=== PATIENT | male | born 1965 | race Caucasian/White ===

== ENCOUNTER 2017-03-31 02:50 | Inpatient (IN) | payer BC ==
--- NOTE | 2017-03-31 02:58 | ED PDOC ---
Arrival/HPI - General Time Seen by Provider: 03/31/17 02:51 Historian: Patient, Family (Son) - History of Present Illness Narrative History of Present Illness (Text): 03/31/17 02:55 A 51 year old male, with no significant past medical history, presents to the with a complaint of 2 day duration , intermittent, right upper quadrant pain radiating toward his right back. The patient states that the pain usually occurs at night and a few hours after he eats. The patient denies fevers, chills , headache, dizziness, chest pain, shortness of breath, dyspnea on exertion, cough, nausea, vomiting, diarrhea, neck pain, urinary/bowel changes, trauma/ injury or any other complaint. Time/Duration: Other (2 Days) Symptom Onset: Sudden Symptom Course: Unchanged Activities at Onset: Rest Context: Home Past Medical History - Provider Review Nursing Documentation Reviewed: Yes Family/Social History - Physician Review Nursing Documentation Reviewed: Yes Family/Social History: Other (Non-contributory) Allergies/Home Meds Allergies/Adverse Reactions: Allergies Penicillins Allergy (Verified 03/31/17 02:52) RASH Home Medications: Home Meds Medication Instructions Recorded Confirmed Ranitidine HCl [Zantac] 150 mg PO DAILY 03/31/17 03/31/17 Review of Systems - Review of Systems Constitutional: absent: Fevers Respiratory: absent: SOB Cardiovascular: absent: Chest Pain Gastrointestinal: Abdominal Pain. absent: Diarrhea, Nausea, Vomiting Neurological: absent: Headache Physical Exam Vital Signs Reviewed: Yes Vital Signs Pulse Resp BP Pulse Ox 03/31/17 04:05 77 16 150/100 H 97 Appearance: Positive for: Well-Appearing, Non-Toxic Pain Distress: None Mental Status: Positive for: Alert and Oriented X 3 - Systems Exam Extroacular Muscles: Present: EOMI Mouth: Present: Moist Mucous Membranes Respiratory/Chest: Present: Clear to Auscultation, Good Air Exchange, Accessory Muscle Use. No: Respiratory Distress Cardiovascular: Present: Regular Rate and Rhythm Abdomen: Present: Tenderness (RUQ tenderness). No: Distention Upper Extremity: Present: NORMAL PULSES Lower Extremity: Present: NORMAL PULSES Neurological: Present: GCS=15, Motor Func Grossly Intact, Normal Sensory Function Skin: Present: Warm, Dry Psychiatric: Present: Alert Medical Decision Making ED Course and Treatment: 03/31/17 02:59 Impression: A 51 year old male presents to the emergency department with 2 day duration, intermittent, RUQ abdominal pain. Plan: -- EKG -- Chest X-ray -- Abdomen/Pelvis CT -- Labs -- Toradol -- Urinalysis -- Reassess and disposition Progress Notes: EKG: Ordered, reviewed, and independently interpreted the EKG. Rate : 76 BPM Rhythm : NSR Interpretation : Normal axis, Normal intervals, No acute ischemia Comparison : No previous EKG for comparison. CT Scan ABD PELVIS IV CONTRAST ONLY Signed By: MOOSE OBRIEN MD Date Signed: 03/31/17 050 IMPRESSION: 1. There is gallbladder distention which is folded on itself with gallstones gallbladder wall thickening and pericholecystic inflammatory change representing acute on chronic cholecystitis. There is gallstone in the neck of the gallbladder seen on image 59 series 2. 2. Possible trace free pelvic fluid. Seen on image 186 series 2. 03/31/17 05:15: Discussed Abdomen/Pelvis CT results with patient. - Lab Interpretations Lab Results: 03/31/17 02:50 03/31/17 02:50 Lab Results 03/31/17 03:30: Urine Color Yellow, Urine Appearance Clear, Urine pH 6.0, Ur Specific Basom 1.025, Urine Protein Negative, Urine Glucose (UA) Negative, Urine Ketones Trace H, Urine Blood Negative, Urine Nitrate Negative, Urine Bilirubin Negative, Urine Urobilinogen 0.2, Ur Leukocyte Esterase Negative 03/31/17 02:50: Sodium 139, Chloride 101, Potassium 4.6, Carbon Dioxide 27, Anion Gap 16, BUN 9, Creatinine 0.9, Est GFR ( Amer) > 60, Est GFR (Non- Af Amer) > 60, Random Glucose 147 H, Calcium 9.6, Total Bilirubin 1.5 H, AST 22 , ALT 41, Alkaline Phosphatase 67, Troponin I < 0.01, Total Protein 7.7, Albumin 4.4, Globulin 3.3, Albumin/Globulin Ratio 1.3, Lipase 52 03/31/17 02:50: pO2 44, VBG pH 7.34, VBG pCO2 50.0, VBG HCO3 27.0, VBG Total CO2 28.5 H, VBG O2 Sat (Calc) 85.3 H, VBG Base Excess 0.5, VBG Potassium 3.9, Sodium 136.0, Chloride 103.0, Glucose 145 H, Lactate 1.1, FiO2 21.0, Venous Blood Potassium 3.9 03/31/17 02:50: WBC 5.8, RBC 5.18, Hgb 15.1, Hct 44.3, MCV 85.5, MCH 29.2, MCHC 34.1, RDW 13.1, Plt Count 156, MPV 10.3, Gran % 49.9 L, Lymph % (Auto) 36.3 H, [place] % (Auto) 11.2 H, Eos % (Auto) 2.1, Baso % (Auto) 0.5, Gran # 2.91, Lymph # 2.1, [place] # 0.7 H, Eos # 0.1, Baso # 0.03 I have reviewed the lab results: Yes - RAD Interpretation Radiology Orders: 03/31/17 02:53 ABD & PELVIS IV CONTRAST ONLY [CT] Stat CHEST PORTABLE [RAD] Stat - EKG Interpretation Interpreted by ED Physician: Yes Type: 12 lead EKG - Medication Orders Current Medication Orders: Metronidazole (Flagyl) 500 mg in 100 mls @ 100 mls/hr IVPB STAT STA PRN Reason: Protocol Stop: 03/31/17 06:03 Last Admin: 03/31/17 05:17 Dose: 100 mls/hr eMAR Start Stop Document 03/31/17 05:17 LAC (Rec: 03/31/17 05:17 LAC [facility] [id number]) Intravenous Solution Start Date 03/31/17 Start Time 05:17 End Date 03/31/17 End time 06:17 Total Infusion Time 60 Levofloxacin/Dextrose (Levaquin 750mg) 750 mg in 150 mls @ 100 mls/hr IVPB STAT STA PRN Reason: Protocol Stop: 03/31/17 06:33 Last Admin: 03/31/17 05:17 Dose: 100 mls/hr eMAR Start Stop Document 03/31/17 05:17 LAC (Rec: 03/31/17 05:18 LAC [facility] [id number]) Intravenous Solution Start Date 03/31/17 Start Time 06:17 End Date 03/31/17 End time 07:17 Total Infusion Time 60 Lactated Ringer's (Lactated Ringer's) 1,000 mls @ 999 mls/hr IV .Q1H1M ANAIS Lactated Ringer's (Lactated Ringer's) 1,000 mls @ 150 mls/hr IV .Q6H40M ANAIS Discontinued Medications Ketorolac Tromethamine (Toradol) 10 mg IVP STAT STA Stop: 03/31/17 02:55 Last Admin: 03/31/17 03:03 Dose: 10 mg MAR Pain Assessment Document 03/31/17 03:03 SC (Rec: 03/31/17 03:03 SC [id number]) Pain Reassessment Is this a pain reassessment? No Sleep Is patient sleeping during reassessment? No Presence of Pain Presence of Pain Yes Pain Scale Used Pain Scale Used Numeric Description Intensity of Pain at present 7 IVP Administration Document 03/31/17 03:03 SC (Rec: 03/31/17 03:03 SC [id number]) Charges for Administration # of IVP Administrations 1 Morphine Sulfate (Morphine) 4 mg IVP STAT STA Stop: 03/31/17 05:21 - Scribe Statement The provider has reviewed the documentation as recorded by the Kostasibisaac Pitts Provider Scribe Attestation: All medical record entries made by the Scribe were at my direction and personally dictated by me. I have reviewed the chart and agree that the record accurately reflects my personal performance of the history, physical exam, medical decision making, and the department course for this patient. I have also personally directed, reviewed, and agree with the discharge instructions and disposition. Disposition/Present on Arrival - Disposition Disposition Time: 05:25
[2017-03-31 03:11] LABS: BASO # 0.03 K/mm3 (0.0-2.0); BASO % 0.5 % (0.0-3.0); EOS # 0.1 (0.0-0.7); EOS % 2.1 % (1.5-5.0); GRAN # 2.91 (1.4-6.5); GRAN % 49.9 % (50.0-68.0); HEMATOCRIT 44.3 % (42.0-52.0); LYMPH # 2.1 (1.2-3.4); LYMPH % 36.3 % (22.0-35.0); MEAN CELL VOLUME 85.5 fl (80.0-105.0); MEAN CORPUSCULAR HEMOGLOBIN 29.2 pg (25.0-35.0); MEAN CORPUSCULAR HGB CONC 34.1 g/dl (31.0-37.0); MEAN PLATELET VOLUME 10.3 fl (7.0-11.0); MONO # 0.7 (0.1-0.6); MONO % 11.2 % (1.0-6.0); RED CELL DISTRIBUTION WIDTH 13.1 % (11.5-14.5); WHITE BLOOD COUNT 5.8 10^3/ul (4.5-11.0)
[2017-03-31 03:12] LABS: VENOUS BLOOD GAS BASE EXCESS 0.5 mmol/L (0.0-2.0); VENOUS BLOOD PH 7.34 (7.32-7.43)
[2017-03-31 03:24] LABS: ALB/GLOB RATIO 1.3 (1.1-1.8); ALKALINE PHOSPHATASE 67 U/L (38-126); ALT/SGPT 41 U/L (7-56); AST/SGOT 22 U/L (17-59); BILIRUBIN,TOTAL 1.5 mg/dL (0.2-1.3); BLOOD UREA NITROGEN 9 mg/dL (7-21); CALCIUM 9.6 mg/dL (8.4-10.5); CARBON DIOXIDE 27 mmol/L (21-33); CHLORIDE 101 mmol/L (98-107); GFR AFRICAN-AMERICAN > 60; GLUCOSE,RANDOM 147 mg/dL (70-110); LIPASE 52 U/L (23-300); POTASSIUM 4.6 mmol/L (3.6-5.0); SODIUM 139 mmol/L (132-148); TOTAL PROTEIN 7.7 g/dL (5.8-8.3)
[2017-03-31] MEDS ORDERED: Iohexol 350 MG/100 ML VIAL ONE (03:30)
[2017-03-31 03:36] LABS: TROPONIN I < 0.01 ng/mL
[2017-03-31 03:52] LABS: URINE APPEARANCE CLEAR (CLEAR); URINE BILIRUBIN NEGATIVE (NEGATIVE); URINE BLOOD NEGATIVE (NEGATIVE); URINE COLOR YELLOW (YELLOW); URINE GLUCOSE (UA) NEGATIVE (NEGATIVE); URINE KETONE TRACE mg/dL (NEGATIVE); URINE LEUKOCYTE ESTERASE NEGATIVE Leu/uL (NEGATIVE); URINE PROTEIN NEGATIVE mg/dL (<30 mg/dL); URINE UROBILINOGEN 0.2 E.U./dL (<1 E.U./dL)
--- NOTE | 2017-03-31 05:01 | CT ---
EXAM: CT Abdomen and Pelvis With Intravenous Contrast CLINICAL HISTORY: 51 years old, male; Pain; Abdominal pain TECHNIQUE: Axial computed tomography images of the abdomen and pelvis with intravenous contrast. All CT scans at this facility use one or more dose reduction techniques, viz.: automated exposure control; ma/kV adjustment per patient size (including targeted exams where dose is matched to indication; i.e. head); or iterative reconstruction technique. 2 sets of reconstruction images are submitted. Axial images are submitted in soft tissue and lung windows. Coronal and sagittal reformatted images were created and reviewed. CONTRAST: 100 mL of [id number] administered intravenously. COMPARISON: No relevant prior studies available. FINDINGS: Lower thorax: Bibasilar lingular nonspecific infiltrates are present, consistent with atelectasis or pneumonia. Small hiatal hernia. Subcentimeter paraesophageal lymph nodes. Cardiomegaly. ABDOMEN: Liver: Fatty liver. Gallbladder and bile ducts: There is gallbladder distention which is folded on itself with gallstones gallbladder wall thickening and pericholecystic inflammatory change representing acute on chronic cholecystitis. There is gallstone in the neck of the gallbladder seen on image 59 series 2. Pancreas: Unremarkable. No mass. No ductal dilation. Spleen: Unremarkable. No splenomegaly. Adrenals: Unremarkable. No mass. Kidneys and ureters: Right renal hypodensity too small to characterize. No hydronephrosis. Stomach and bowel: Diverticulosis. There is stool like appearance to the distal small bowel. This may represent slow transit. No obstruction. No mucosal thickening. Appendix: The appendix is not seen. PELVIS: Bladder: Partially decompressed bladder with bladder wall thickening. Correlation with urinalysis is recommended only if clinical cystitis is suspected. Reproductive: Enlarged prostate gland. ABDOMEN and PELVIS: Intraperitoneal space: Possible trace free pelvic fluid. Seen on image 186 series 2. No free air. Bones/joints: No acute fracture. No dislocation. Soft tissues: There is a fat-containing umbilical hernia. Bilateral inguinal herniation of fat. Vasculature: Unremarkable. No abdominal aortic aneurysm. Lymph nodes: See above. IMPRESSION: 1. There is gallbladder distention which is folded on itself with gallstones gallbladder wall thickening and pericholecystic inflammatory change representing acute on chronic cholecystitis. There is gallstone in the neck of the gallbladder seen on image 59 series 2. 2. Possible trace free pelvic fluid. Seen on image 186 series 2.
[2017-03-31] MEDS ORDERED: metroNIDAZOLE IV 500 mg/100 ml 500 MG/100 ML BAG IVPB STA (05:04)
[2017-03-31] MEDS ORDERED: levoFLOXacin 750 mg in D5W 750 MG/150 ML BAG IVPB STA (05:04)
[2017-03-31] MEDS ORDERED: Morphine 4 mg/ml ISec IVP STA (05:20)
[2017-03-31] MEDS ORDERED: Lactated Ringer's 1,000 ML IV SCH ×2 (05:30)
[2017-03-31] MEDS ORDERED: Nitroglycerin 2% Ointment Foilpak UD TOP PRN (08:11)
[2017-03-31] MEDS ORDERED: Dextrose 5%/0.9% NS 1,000 ML IV SCH (08:15)
[2017-03-31] MEDS: Morphine 2 mg/ml ISec IVP PRN ×3 (08:42→22:06)
[2017-03-31 10:11] VITALS: BMI 34.0
--- NOTE | 2017-03-31 10:42 | RAD ---
HISTORY: cp COMPARISON: No prior. FINDINGS: LUNGS: No active pulmonary disease. PLEURA: No significant pleural effusion identified, no pneumothorax apparent. CARDIOVASCULAR: Normal. OSSEOUS STRUCTURES: No significant abnormalities. VISUALIZED UPPER ABDOMEN: Normal. OTHER FINDINGS: None. IMPRESSION: No active disease.
[2017-03-31] MEDS ORDERED: Sodium Chloride 0.45% 1,000 ML IV SCH (12:15)
[2017-03-31] MEDS: cefTRIAXone 1 gm 1 GM/100 ML BAG IVPB SCH (12:57)
[2017-03-31] MEDS: metroNIDAZOLE IV 500 mg/100 ml 500 MG/100 ML BAG IVPB SCH ×2 (14:15→21:18)
--- NOTE | 2017-03-31 14:57 | HP ---
HISTORY OF PRESENT ILLNESS: This 51-year-old male presented to [facility] ER complaining of abdominal pain, nausea, and vomiting and was found to have [id number] cholecystitis on abdominal CT. He is admitted for further evaluation of the above and is awaiting surgical consultation. Of note, the patient has a past history of right leg fracture and repair, fatty liver, gallstones, and was also noted to have diverticulosis on his abdominal CT. The emergency room CAT scan also noted a gallstone in the neck of the gallbladder with thickening and pericholecystic inflammatory changes, which represented [id number] cholecystitis. The patient was interviewed at his bedside in the presence of his daughter and . He has had ongoing abdominal pain and intermittent nausea and vomiting for the past several months. The patient stated that the pain usually occurs at night and after he eats. REVIEW OF SYSTEMS: CONSTITUTIONAL REVIEW: Denied fever or chills. HEAD REVIEW: Denied headache or seizure. EYE REVIEW: Denied change in visual acuity. EAR REVIEW: No hearing loss. THROAT REVIEW: No swallowing difficulty. NECK REVIEW: No stiffness. CARDIAC REVIEW: No knowledge of heart attack or chest pain or shortness of breath. PULMONARY: No knowledge of pneumonia. GASTROINTESTINAL: Chronic GERD. GENITOURINARY: No dysuria. SKIN: No rash. VASCULAR: No claudication. PSYCHOLOGIC: The patient appears anxious. NEUROLOGIC: No knowledge of stroke. SOCIAL HISTORY: The patient is a nondrinker, nonsmoker, non-IV drug misuser. MEDICATIONS: He was taking Zantac as an outpatient p.r.n. GERD. ALLERGIES: HE STATES HE HAS A SENSITIVITY TO PENICILLIN, WHICH CAUSED HIS HANDS TO HAVE SOME SWELLING. FAMILY HISTORY: Noncontributory. PAST SURGICAL HISTORY: Fractured leg repair. PHYSICAL EXAMINATION: VITAL SIGNS: Temperature 98.4, respirations 20, pulse 73, and blood pressure 153/90 with a pulse ox 99% room air. HEENT: Head: Normocephalic, atraumatic. Eyes: No icterus. Ears: Clear. Throat: Noninjected. NECK: Supple. HEART: Regular S1 and S2. LUNGS: Clear. ABDOMEN: Soft. Mild right upper quadrant discomfort to palpation. No rebound, no guarding. Audible bowel sounds present. EXTREMITIES: No clubbing, no cyanosis, no edema. SKIN: Without rash. NEUROLOGIC: Intact. PSYCHOLOGIC: Alert and oriented x3. VASCULAR: Legs are warm to touch. LABORATORY DATA: White count 5800, hemoglobin 15.1, hematocrit 44.3, and platelets 156,000. Sodium 139, K 4.6, chloride 101, bicarb 27, BUN 9, creatinine 0.9, random blood sugar 116, bilirubin 1.5, AST 22, ALT 41, alk phos 67, and lipase 52. Urinalysis unremarkable. Chest x-ray was reviewed, no active pulmonary disease, no pneumonia, no pleural effusions, no infiltrate. Abdominal pelvic CT showed [id number] cholecystitis with a gallstone in the neck of the gallbladder, no hydronephrosis, diverticulosis, no obstruction. EKG reportedly showed normal sinus rhythm. IMPRESSION AND RECOMMENDATIONS: This is a 51-year-old male with [id number] cholecystitis, now with accelerated hypertension, probably secondary to pain, history of old degenerative arthritis, and gastroesophageal reflux disease. As discussed with the family, the patient will remain n.p.o. He is receiving IV fluids for hydration. He is awaiting surgical consultation by Dr. Sukumar Krishnan. I will order blood and urine cultures for completeness sake. The patient will be given IV Rocephin and IV Flagyl while monitoring his clinical response to the Rocephin. He is ordered to receive Pepcid at bedtime p.r.n. gastroesophageal reflux disease and has an order for morphine 2 mg IV q.4 hours p.r.n. severe pain. He has an order for Zofran 4 mg IV q.6 hours p.r.n. nausea and vomiting and is on D5 0.45 saline at 100 mL/hour per IV fluid hydration. Tylenol will be given p.r.n. fever or headache. He will have repeat laboratories in the morning pending surgical evaluation. Additional testing or surgical timing will be entertained. All of the above was discussed in detail with the patient, family, and nursing at the patient's bedside. All questions were answered. Tiffanie Marrero MD MTDD
--- NOTE | 2017-03-31 15:06 | CP.PCM.CON ---
History of Present Illness - History of Present Illness History of Present Illness: GENERAL SURGERY CONSULT NOTE FOR DR. CAAL 51yo M with PMHx of GERD presented to the ED with abdominal pain. The pain began 2 days ago in the RUQ, epigastric area and radiating to his right back. The pain comes and goes and is worse after eating meat. He has associated shivering but not fevers. He vomited once a couple days ago and vomited again once today. He denies diarrhea or constipation. PMHx: GERD Surgeries: left leg fracture repair Medications: Ranitidine Allergies: penicillin Social history: denies etoh, illicit drug use or tobacco use Review of Systems - Review of Systems All systems: reviewed and no additional remarkable complaints except (as per HPI ) Past Patient History - Past Social History Smoking Status: Never Smoked - CARDIAC Hx Cardiac Disorders: No - PULMONARY Hx Respiratory Disorders: No - NEUROLOGICAL Hx Neurological Disorder: No - HEENT Hx HEENT Problems: No - RENAL Hx Chronic Kidney Disease: No - ENDOCRINE/METABOLIC Hx Endocrine Disorders: No - HEMATOLOGICAL/ONCOLOGICAL Hx Blood Disorders: No - INTEGUMENTARY Hx Dermatological Problems: No - MUSCULOSKELETAL/RHEUMATOLOGICAL Hx Musculoskeletal Disorders: No Hx Falls: Yes Hx Fractures: Yes (leg 2010) - GASTROINTESTINAL Hx Gastrointestinal Disorders: Yes Hx Gastroesophageal Reflux: Yes - GENITOURINARY/GYNECOLOGICAL Hx Genitourinary Disorders: No - PSYCHIATRIC Hx Psychophysiologic Disorder: No - SURGICAL HISTORY Hx Surgeries: Yes - ANESTHESIA Hx Anesthesia: No Meds Allergies/Adverse Reactions: Allergies Allergy/AdvReac Type Severity Reaction Status Date / Time Penicillins Allergy RASH Verified 03/31/17 02:52 - Medications Medications: Current Medications Acetaminophen (Tylenol 325mg Tab) 650 mg PO Q6H PRN PRN Reason: Fever >100.4 F Famotidine (Pepcid) 40 mg PO HS PRN PRN Reason: gerd Metronidazole (Flagyl) 500 mg in 100 mls @ 100 mls/hr IVPB Q8 ANAIS PRN Reason: Protocol Last Admin: 03/31/17 14:15 Dose: 100 mls/hr Ceftriaxone Sodium (Rocephin 1 Gram Ivpb (D5w)) 1 gm in 100 mls @ 100 mls/hr IVPB DAILY ANAIS PRN Reason: Protocol Last Admin: 03/31/17 12:57 Dose: 100 mls/hr Sodium Chloride (Sodium Chloride 0.45%) 1,000 mls @ 100 mls/hr IV .Q10H ANAIS Last Admin: 03/31/17 12:59 Dose: 100 mls/hr Morphine Sulfate (Morphine) 2 mg IVP Q4H PRN PRN Reason: Pain, severe (8-10) Last Admin: 03/31/17 08:42 Dose: 2 mg Nitroglycerin (Nitro-Bid 2% Oint) 1 ea TOP Q4H PRN PRN Reason: Other Last Admin: 03/31/17 08:42 Dose: 1 ea Ondansetron HCl (Zofran Inj) 4 mg IVP Q6H PRN PRN Reason: Nausea/Vomiting Last Admin: 03/31/17 14:42 Dose: 4 mg Physical Exam - Constitutional Appears: Well, Non-toxic, No Acute Distress - Head Exam Head Exam: ATRAUMATIC, NORMAL INSPECTION - Eye Exam Eye Exam: EOMI, Normal appearance - Respiratory Exam Respiratory Exam: NORMAL BREATHING PATTERN. absent: Respiratory Distress - Cardiovascular Exam Cardiovascular Exam: +S1, +S2 - GI/Abdominal Exam GI & Abdominal Exam: Soft, Tenderness (tender in epigastric/RUQ). absent: Distended, Firm, Guarding, Rebound, Rigid - Extremities Exam Extremities exam: Positive for: normal inspection. Negative for: calf tenderness, pedal edema - Back Exam Back exam: absent: CVA tenderness (L), CVA tenderness (R) - Neurological Exam Neurological exam: Alert, CN II-XII Intact, Oriented x3 - Psychiatric Exam Psychiatric exam: Normal Affect, Normal Mood - Skin Skin Exam: Dry, Normal Color, Warm Results - Vital Signs Recent Vital Signs: Last Vital Signs Temp 98.4 F 03/31/17 08:49 Pulse 73 03/31/17 08:49 Resp 20 03/31/17 08:49 BP 167/112 H 03/31/17 08:49 Pulse Ox 100 03/31/17 08:49 - Labs Result Diagrams: 03/31/17 02:50 03/31/17 02:50 Labs: Laboratory Results - last 24 hr 03/31/17 07:48 POC Glucose (mg/dL) 116 H Assessment & Plan - Assessment and Plan (Free Text) Assessment: 51yo M with PMHx of GERD presented with abdominal pain and was found to have cholecystitis. - Afebrile, VSS - No leukocytosis - Bilirubin mildly elevated 1.5 - LFTs WNL - CT: gallbladder distention w/ gallstones, gallbladder wall thickening & pericholecystic inflammation suggesting acute on chronic cholecystitis; fat containing umbilical hernia; bilateral fat containing inguinal hernias - Abdominal US ordered to better evaluated gallbladder and evaluate for CBD dilation - NPO, IV fluids - IV Antibiotics: Rocephin and Flagyl per medicine team - Morphine and Zofran PRN - Discussed plan with Dr. Eulogio Sullivan PGY-3
--- NOTE | 2017-03-31 15:09 | CARD ---
APPROVED REPORT EKG Measurement Heart [id number] <Conclusion> Normal sinus rhythm Normal ECG
[2017-04-01] MEDS: Morphine 2 mg/ml ISec IVP PRN ×2 (03:24→20:14)
[2017-04-01] MEDS: metroNIDAZOLE IV 500 mg/100 ml 500 MG/100 ML BAG IVPB SCH ×3 (06:31→21:21)
[2017-04-01 07:54] LABS: HEMATOCRIT 41.9 % (42.0-52.0); MEAN CELL VOLUME 84.5 fl (80.0-105.0); MEAN CORPUSCULAR HEMOGLOBIN 28.8 pg (25.0-35.0); MEAN CORPUSCULAR HGB CONC 34.1 g/dl (31.0-37.0); MEAN PLATELET VOLUME 10.7 fl (7.0-11.0); RED CELL DISTRIBUTION WIDTH 13.3 % (11.5-14.5); WHITE BLOOD COUNT 9.5 10^3/ul (4.5-11.0)
--- NOTE | 2017-04-01 08:09 | CP.PCM.PN ---
Subjective - Date & Time of Evaluation Date of Evaluation: 04/01/17 Time of Evaluation: 07:00 - Subjective Subjective: GENERAL SURGERY PROGRESS NOTE FOR DR. CAAL Patient seen and examined at bedside. He states that his abdominal pain has gone from a 7 to a 4. He has not had any more vomiting. He is ambulating to the bathroom to void. Objective - Vital Signs/Intake and Output Vital Signs (last 24 hours): Temp Pulse Resp BP Pulse Ox 99.2 F 92 H 20 136/82 93 L 04/01/17 00:05 04/01/17 00:05 04/01/17 00:05 04/01/17 00:05 04/01/17 00:05 - Medications Medications: Current Medications Acetaminophen (Tylenol 325mg Tab) 650 mg PO Q6H PRN PRN Reason: Fever >100.4 F Last Admin: 03/31/17 20:25 Dose: 650 mg Famotidine (Pepcid) 40 mg PO HS PRN PRN Reason: gerd Last Admin: 03/31/17 20:25 Dose: 40 mg Metronidazole (Flagyl) 500 mg in 100 mls @ 100 mls/hr IVPB Q8 ANAIS PRN Reason: Protocol Last Admin: 04/01/17 06:31 Dose: 100 mls/hr Ceftriaxone Sodium (Rocephin 1 Gram Ivpb (D5w)) 1 gm in 100 mls @ 100 mls/hr IVPB DAILY ANAIS PRN Reason: Protocol Last Admin: 03/31/17 12:57 Dose: 100 mls/hr Sodium Chloride (Sodium Chloride 0.45%) 1,000 mls @ 100 mls/hr IV .Q10H [facility] Last Admin: 03/31/17 12:59 Dose: 100 mls/hr Morphine Sulfate (Morphine) 2 mg IVP Q4H PRN PRN Reason: Pain, severe (8-10) Last Admin: 04/01/17 03:24 Dose: 2 mg Nitroglycerin (Nitro-Bid 2% Oint) 1 ea TOP Q4H PRN PRN Reason: Other Last Admin: 03/31/17 08:42 Dose: 1 ea Ondansetron HCl (Zofran Inj) 4 mg IVP Q6H PRN PRN Reason: Nausea/Vomiting Last Admin: 03/31/17 14:42 Dose: 4 mg - Labs Labs: 04/01/17 07:30 - Constitutional Appears: Well, Non-toxic, No Acute Distress - Head Exam Head Exam: ATRAUMATIC, NORMAL INSPECTION - Respiratory Exam Respiratory Exam: NORMAL BREATHING PATTERN. absent: Respiratory Distress - Cardiovascular Exam Cardiovascular Exam: +S1, +S2 - GI/Abdominal Exam GI & Abdominal Exam: Soft, Tenderness (tender in epigastric, mildly tender RUQ) , Hernia (small umbilical hernia). absent: Distended, Firm, Guarding, Rigid, Rebound - Neurological Exam Neurological Exam: Alert, Awake, Oriented x3 - Psychiatric Exam Psychiatric exam: Normal Affect, Normal Mood - Skin Skin Exam: Dry, Normal Color, Warm Assessment and Plan - Assessment and Plan (Free Text) Assessment: 51yo M with PMHx of GERD presented with abdominal pain and was found to have cholecystitis, need to rule out choledocholithiasis - Afebrile, VSS - No leukocytosis - Bilirubin elevated at 2.0 (increased from 1.5 yesterday) - LFTs WNL - CT: gallbladder distention w/ gallstones, gallbladder wall thickening & pericholecystic inflammation suggesting acute on chronic cholecystitis; fat containing umbilical hernia; bilateral fat containing inguinal hernias - Abdominal US ordered to better evaluate gallbladder and evaluate for CBD dilation due to elevated bilirubin - NPO, IV fluids - IV Antibiotics: Rocephin and Flagyl per medicine team - Morphine and Zofran PRN - Discussed plan with Dr. Eulogio Sullivan PGY-3
[2017-04-01 08:16] LABS: ALB/GLOB RATIO 1.3 (1.1-1.8); ALKALINE PHOSPHATASE 57 U/L (38-126); ALT/SGPT 32 U/L (7-56); AST/SGOT 21 U/L (17-59); BLOOD UREA NITROGEN 14 mg/dL (7-21); CALCIUM 8.7 mg/dL (8.4-10.5); CARBON DIOXIDE 26 mmol/L (21-33); CHLORIDE 100 mmol/L (98-107); GFR AFRICAN-AMERICAN > 60; GLUCOSE,RANDOM 157 mg/dL (70-110); SODIUM 136 mmol/L (132-148)
[2017-04-01] MEDS: cefTRIAXone 1 gm 1 GM/100 ML BAG IVPB SCH (09:26)
--- NOTE | 2017-04-01 12:12 | US ---
HISTORY: abd pain, elevated t bili COMPARISON: None. TECHNIQUE: Sonographic evaluation of the abdomen. FINDINGS: LIVER: Measures 14.85 x 13.96 cm. Increased echogenicity of the liver parenchyma. No mass. No intrahepatic bile duct dilatation. GALLBLADDER: Stones and sludge can be seen within the gallbladder. There is also edema and thickening of the wall of the gallbladder measuring 7 mm thick. There is also focal tenderness. Findings consistent with acute cholecystitis COMMON BILE DUCT: Measures 6 mm. No stones. No dilatation. PANCREAS: Not visualized RIGHT KIDNEY: Measures 11.5 x 4.8 x 5.92cm. Normal echogenicity. No calculus, mass, or hydronephrosis. LEFT KIDNEY: Measures 13.30 x 4.92 x 5.97cm. Normal echogenicity. No calculus, mass, or hydronephrosis. SPLEEN: 12.24 x 6.62 cm AORTA: No aneurysmal dilatation. IVC: Unremarkable. OTHER FINDINGS: None. IMPRESSION: Stones and sludge can be seen within the gallbladder. There is also edema and thickening of the wall of the gallbladder measuring 7 mm thick. There is also focal tenderness. Findings consistent with acute cholecystitis
[2017-04-01] MEDS: Sodium Chloride 0.9% 1,000 ML IV SCH (18:07)
[2017-04-01] MEDS: Insulin Reg-LOW-Coverage SC SCH (21:14)
--- NOTE | 2017-04-02 00:22 | PN ---
DATE: 04/01/2017 SUBJECTIVE: This 51-year-old male was examined at the bedside in the presence of his daughter and his nurse, Jessica Waddell, registered nurse. I have discussed this case in detail with the patient, family, nursing and Dr. Sukumar Krishnan from Surgery. The patient has completed abdominal CT as well as abdominal ultrasound, both are consistent with acute cholecystitis. There is no evidence of biliary tract obstruction on either CT or abdominal ultrasound and as per Dr. Sukumar Krishnan, his plans are for surgery to remove the patient's gallbladder in the a.m. The patient remains n.p.o., he is tolerating IV fluids and IV antibiotics. He states that the pain with antibiotic and parenteral morphine is improved and he is cooperating with nursing staff. PHYSICAL EXAM: VITAL SIGNS: Of note, his initial fever is now normalized and on physical exam, temperature is 97.9, respirations 18, pulse 71, blood pressure 135/90 with a pulse oximetry of 96% room air. HEENT: Head is normocephalic, atraumatic. Eyes: No icterus. Ears: Clear. Throat: Noninjected. NECK: Supple. HEART: Regular S1, S2. LUNGS: Clear. ABDOMEN: Soft. Decreased right upper quadrant discomfort. No rebound. No guarding. EXTREMITIES: No clubbing, no cyanosis, no edema. SKIN: Without rash. NEUROLOGICAL: Intact. PSYCHOLOGICAL: Alert and oriented x3. VASCULAR: Legs warm to touch. LABORATORY DATA: White count 9500, hemoglobin 14.3, hematocrit 41.9, platelets 157,000. Sodium 136, K 4.0, chloride 100, bicarb 26, BUN 14, creatinine 0.9, random blood sugar 157. Bilirubin 2.0, AST 21, ALT 32, alkaline phosphatase 57. Blood culture showed no growth at 24 hours x2. Abdominal ultrasound was reviewed. There is no liver mass, no intrahepatic bile duct dilatation, the gallbladder has stones and sludge, and there is also edema and thickening of the wall of the gallbladder consistent with acute cholecystitis, the common bile duct measures 6 mm and there are no stones or dilatation. The kidneys showed no calculus or hydronephrosis, aorta shows no aneurysmal dilatation. CT of abdomen also had changes consistent with tdoht-lz-gibfaoe cholecystitis with a gallstone noted in the neck of the gallbladder and evidence of fatty liver as well. Chest x-ray shows no active pulmonary disease, no pneumonia, no pneumothorax, no pleural effusions, no infiltrates. EKG shows normal sinus rhythm. IMPRESSION: This is a 51-year-old male with acute cholecystitis, history of peptic ulcer disease with gastroesophageal reflux disease. PLAN: As per Dr. Krishnan is to proceed with cholecystectomy in the a.m. The patient is scheduled to be n.p.o. after midnight. He continues on Rocephin 1 g IV q. 24, 0.9 saline at 100 mL per hour, nitroglycerin ointment to chest wall p.r.n. accelerated hypertension, morphine sulfate 2 mg IV q.4 hours p.r.n. severe pain, Flagyl 500 mg IV q.8 hours. All of the above was discussed with the patient's family, nursing and surgery. All questions were answered. Greater than 35 minutes was spent in the care, counseling, management, review of labs, x-rays with the patient and medical team today. Tiffanie Marrero MD
[2017-04-02] MEDS: Sodium Chloride 0.9% 1,000 ML IV SCH ×2 (05:08→13:15)
[2017-04-02] MEDS: metroNIDAZOLE IV 500 mg/100 ml 500 MG/100 ML BAG IVPB SCH ×3 (05:09→21:59)
[2017-04-02 07:20] LABS: BLOOD UREA NITROGEN 14 mg/dL (7-21); CALCIUM 8.6 mg/dL (8.4-10.5); CARBON DIOXIDE 25 mmol/L (21-33); CHLORIDE 102 mmol/L (98-107); GFR AFRICAN-AMERICAN > 60; GLUCOSE,RANDOM 129 mg/dL (70-110); POTASSIUM 4.1 mmol/L (3.6-5.0); SODIUM 138 mmol/L (132-148)
[2017-04-02] MEDS: Insulin Reg-LOW-Coverage SC SCH ×3 (08:06→16:42)
[2017-04-02] MEDS: cefTRIAXone 1 gm 1 GM/100 ML BAG IVPB SCH (10:24)
[2017-04-02] MEDS ORDERED: Bupivacaine 0.5% Inj(30mL) ONE (13:50)
[2017-04-02] MEDS ORDERED: Iohexol 240 (50 ml) ONE (13:50)
[2017-04-02] MEDS ORDERED: Propofol 10 mg/ml Inj (20 ML) ONE ×2 (14:48→15:56)
[2017-04-02] MEDS ORDERED: Midazolam 2 MG/2 ML VIAL ONE (14:49)
[2017-04-02] MEDS ORDERED: Succinylcholine 200 mg/10 ml Inj IV ONE (14:51)
[2017-04-02] MEDS ORDERED: Ciprofloxacin 400mg/200ml D5W 400 MG/200 ML BAG IVPB ONE (15:00)
[2017-04-02] MEDS ORDERED: Vancomycin 1 g Inj ONE ×2 (15:00→15:03)
[2017-04-02] MEDS ORDERED: Rocuronium 10 mg/ml (5 ml) ONE (15:32)
[2017-04-02] MEDS ORDERED: Esmolol 100 mg/10ml Inj IV ONE ×2 (15:32→16:44)
[2017-04-02] MEDS ORDERED: Glycopyrrolate 0.2 mg/ml (2ml vial) ONE ×2 (15:32→16:23)
[2017-04-02] MEDS ORDERED: Neostigmine Methylsulfate 3mg/3ml Syringe IV ONE ×2 (15:33→16:23)
[2017-04-02] MEDS ORDERED: Desflurane Inhalation Anesthetic Liq (240 ml) ONE (15:46)
[2017-04-02] MEDS ORDERED: Naloxone 0.4 mg/ml Inj (Adult) ONE (16:50)
[2017-04-02] MEDS ORDERED: HYDROmorphone 0.5 mg/0.5 ml ISec IVP PRN (17:20)
[2017-04-02] MEDS ORDERED: Oxycodone/Acetaminophen 5/325 mg Tab PO PRN (17:26)
[2017-04-02] MEDS ORDERED: Lactated Ringer's 1,000 ML IV SCH (17:30)
--- NOTE | 2017-04-02 17:31 | PCM.SURG1 ---
Surgeon's Initial Post Op Note - Surgeon's Notes Surgeon: Dr. Krishnan Clamp Remover: Belkis bartholomew PGY2, PGY1 Type of Anesthesia: General Endo Pre-Operative Diagnosis: Acute cholecystitis Operative Findings: inflammed gallbladder, unable to visualize biliary ducts Post-Operative Diagnosis: Same Operation Performed: Open partial cholecystectomy with ryan tube Specimen/Specimens Removed: fundus of gallbladder Estimated Blood Loss: EBL {In ML}: 200 Drains Used: Luis Miguel Post-Op Condition: Fair Date of Surgery/Procedure: 04/02/17 Time of Surgery/Procedure: 17:31
[2017-04-02] MEDS ORDERED: HYDROmorphone 0.5 mg/0.5 ml ISec ONE ×2 (17:44→18:02)
[2017-04-02] MEDS ORDERED: HYDROmorphone 0.5 mg/0.5 ml ISec IVP ONE (17:45)
[2017-04-02] MEDS: HYDROmorphone 1 mg/ml ISec IVP PRN (21:59)
[2017-04-03] MEDS: Sodium Chloride 0.9% 1,000 ML IV SCH ×2 (00:17→08:57)
[2017-04-03] MEDS: Insulin Reg-LOW-Coverage SC SCH ×4 (03:34→17:22)
[2017-04-03] MEDS: HYDROmorphone 1 mg/ml ISec IVP PRN ×4 (03:47→22:34)
--- NOTE | 2017-04-03 03:48 | OP ---
PROCEDURE DATE: PREOPERATIVE DIAGNOSIS: Acute and chronic cholecystitis. POSTOPERATIVE DIAGNOSIS: Acute and chronic cholecystitis. OPERATION: Exploratory laparoscopy, attempted cholecystectomy, and open partial cholecystectomy. DESCRIPTION OF PROCEDURE: In the operating room, the patient was identified by name, name of the procedure, laterality, my name, number, and the wrist band. Supraumbilical incision was made through the skin and subcutaneous tissues after the successful time out and the abdomen was entered with the Visiport after using the needle. The abdomen was entered without issues. The gallbladder was the same color as the liver. It was swollen, filled with about 100 mL of dark bile. A xiphoid 5 and two lateral 5s were placed. Having decompressed the gallbladder, I could not grab it to pick it up, when we did, it tore, first in the top and then the mid portion and then later on. There was a dilated portion where the presumptive stone was and we try to pull this up and right through. There was really no way to continue laparoscopically. Having said that once the laparoscopy was concluded, a transverse Shana incision was made from the midline laterally and the abdomen entered quickly using the Bookwalter. There was clearly no way to dissect initially by the at the end of the gallbladder. There was a little bit of bleeding, but nothing remarkable. The gallbladder was then scored on the end and a plain was attempted to sweep the gallbladder away from the liver bed, we eventually got that; however, the back wall was completely necrotic. The gallbladder was then bluntly and sharply and cautery dissected off of liver bed to the end of the gallbladder. The gallbladder was opened, all the stones were removed, it was irrigated and dried. The gallbladder was then transected across the lower portion of it after dissection was down as far as possible. Four stitches of 0 Vicryl were placed. A 15 mL balloon was inserted through one of the 5 mm ports and it was sutured in place with the balloon inflated. A Luis Miguel was placed to the other, liver bed was packed with SurgiSeal and hemostasis became good. The gallbladder remnant was bleeding from the wall twice and this was taken with a Vicryl with good results noting that the wall was very necrotic. The umbilicus was closed with stitch under direct vision. The abdomen was then closed under direct vision using a posterior layer of 0 Vicryl and anterior layer of #1 PDS. Subcutaneous tissues were closed with Vicryl followed by subcuticular stitch, Dermabond as well as the umbilicus. The patient was taken to the recovery room in good condition after sponge and needle counts were declared correct. Sukumar Krishnan MD
[2017-04-03] MEDS: metroNIDAZOLE IV 500 mg/100 ml 500 MG/100 ML BAG IVPB SCH ×3 (05:20→21:40)
[2017-04-03 06:46] LABS: BASO # 0.01 K/mm3 (0.0-2.0); BASO % 0.1 % (0.0-3.0); HEMATOCRIT 37.2 % (42.0-52.0); LYMPH # 1.3 (1.2-3.4); LYMPH % 15.7 % (22.0-35.0); MEAN CELL VOLUME 85.3 fl (80.0-105.0); MEAN CORPUSCULAR HEMOGLOBIN 28.4 pg (25.0-35.0); MEAN CORPUSCULAR HGB CONC 33.3 g/dl (31.0-37.0); MEAN PLATELET VOLUME 9.9 fl (7.0-11.0); MONO % 12.2 % (1.0-6.0); RED CELL DISTRIBUTION WIDTH 13.3 % (11.5-14.5); WHITE BLOOD COUNT 8.3 10^3/ul (4.5-11.0)
[2017-04-03 07:35] LABS: ALB/GLOB RATIO 1.1 (1.1-1.8); ALKALINE PHOSPHATASE 113 U/L (38-126); ALT/SGPT 54 U/L (7-56); AST/SGOT 69 U/L (17-59); BILIRUBIN,TOTAL 0.8 mg/dL (0.2-1.3); BLOOD UREA NITROGEN 16 mg/dL (7-21); CALCIUM 7.9 mg/dL (8.4-10.5); CARBON DIOXIDE 26 mmol/L (21-33); CHLORIDE 103 mmol/L (98-107); GFR AFRICAN-AMERICAN > 60; GLUCOSE,RANDOM 148 mg/dL (70-110); POTASSIUM 4.1 mmol/L (3.6-5.0); SODIUM 138 mmol/L (132-148)
--- NOTE | 2017-04-03 08:17 | PN ---
DATE: 04/02/2017 SUBJECTIVE: This 51-year-old male was examined at the bedside in the presence of his and nurse, Kita Funk, registered nurse. The patient remains afebrile. He is n.p.o. and scheduled for cholecystectomy with Dr. Krishnan today. PHYSICAL EXAMINATION: VITAL SIGNS: He currently has a temperature of 98.2, respirations of 20, pulse of 100, and blood pressure of 124/91 with a pulse oximetry of 97% room air. HEENT: Head is normocephalic and atraumatic. Eyes: No icterus. Ears: Clear. Throat: Noninjected. NECK: Supple. CARDIOVASCULAR: Heart is regular S1 and S2. LUNGS: Clear. ABDOMEN: Soft. No rebound and no guarding. EXTREMITIES: No edema. SKIN: Without rash. NEUROLOGICAL: Intact. PSYCHOLOGICAL: Alert. VASCULAR: Legs warm to touch. LABORATORY DATA: White count of 9500, hemoglobin of 14.3, hematocrit of 41.9, and platelets 157,000. Sodium of 138, potassium of 4.1, chloride of 102, bicarb of 25, BUN of 14, creatinine of 0.9, and random blood sugar of 120. IMPRESSION: This is a 51-year-old male with dtbul-ir-ngcrctg cholecystitis, awaiting surgical removal of gallbladder. PLAN: The plan is to remain on with blood culture showing no growth at [address] and abdominal ultrasound showing evidence of gallbladder inflammation, sludge stones and no dilatation of the intrahepatic or common bile duct. The plan is to continue Flagyl 500 mg IV q. 8 hours., regular low-dose insulin protocol a.c. meals at bedtime, Morphine 2 mg IV q. 4 hours. p.r.n. severe pain, nitroglycerin 1 inch to chest wall q. 4 hours. p.r.n. accelerated hypertension, Pepcid 40 mg p.o. at bedtime p.r.n., for gastroesophageal reflux disease, Rocephin 1 g IV q. 24 hours. and 0.9 saline at 100 mL per hour. The patient will have postoperative orders outlined by Dr. Sukumar Krishnan from surgery and pending clinical progress and operation results, he will decide discharge timing. All this was discussed in detail with the patient, family and nursing at bedside. All questions were answered. Tiffanie Marrero MD [facility] # [id number] MTDJohanna
[2017-04-03] MEDS: cefTRIAXone 1 gm 1 GM/100 ML BAG IVPB SCH (09:48)
--- NOTE | 2017-04-03 10:47 | CP.PCM.PN ---
Subjective - Date & Time of Evaluation Date of Evaluation: 04/03/17 Time of Evaluation: 06:50 - Subjective Subjective: COG-PGY1 GENERAL SURGERY PROGRESS NOTE FOR DR. CAAL Patient seen and examined at bedside. Patient complaining of post operative pain and acid feeling overnight. Patient given pain medication and head of bed elevated. Patient reports pain at right upper quadrant associated with incision site. Patient reports poor appetite, limited nausea. Patient reports flatus. Denies chest pain, shortness of breath, diarrhea, constipation, vomiting, fever , chills. Objective - Vital Signs/Intake and Output Vital Signs (last 24 hours): Temp Pulse Resp BP Pulse Ox 100.7 F H 98 H 20 118/76 95 04/03/17 08:21 04/03/17 08:00 04/03/17 08:00 04/03/17 08:00 04/03/17 08:00 Intake and Output: 04/03/17 04/03/17 06:59 18:59 Intake Total 0 Output Total 375 Balance -375 - Medications Medications: Current Medications Acetaminophen (Tylenol 325mg Tab) 650 mg PO Q6H PRN PRN Reason: Fever >100.4 F Last Admin: 04/03/17 08:21 Dose: 650 mg Famotidine (Pepcid) 40 mg PO HS PRN PRN Reason: gerd Last Admin: 04/02/17 21:59 Dose: 40 mg Heparin Sodium (Porcine) (Heparin) 5,000 units SC Q12 [facility] PRN Reason: Protocol Last Admin: 04/03/17 09:47 Dose: 5,000 units Hydromorphone HCl (Dilaudid) 1 mg IVP Q4H PRN PRN Reason: Pain, severe (8-10) Last Admin: 04/03/17 07:53 Dose: 1 mg Metronidazole (Flagyl) 500 mg in 100 mls @ 100 mls/hr IVPB Q8 [facility] PRN Reason: Protocol Last Admin: 04/03/17 05:20 Dose: 100 mls/hr Ceftriaxone Sodium (Rocephin 1 Gram Ivpb (D5w)) 1 gm in 100 mls @ 100 mls/hr IVPB DAILY [facility] PRN Reason: Protocol Last Admin: 04/03/17 09:48 Dose: 100 mls/hr Sodium Chloride (Sodium Chloride 0.9%) 1,000 mls @ 100 mls/hr IV .Q10H [facility] Last Admin: 04/03/17 08:57 Dose: 100 mls/hr Insulin Human Regular (Humulin R Low) 0 units SC ACHS [facility] PRN Reason: Protocol Last Admin: 04/03/17 09:33 Dose: Not Given Morphine Sulfate (Morphine) 2 mg IVP Q4H PRN PRN Reason: Pain, severe (8-10) Last Admin: 04/01/17 20:14 Dose: 2 mg Nitroglycerin (Nitro-Bid 2% Oint) 1 ea TOP Q4H PRN PRN Reason: Other Last Admin: 03/31/17 08:42 Dose: 1 ea Ondansetron HCl (Zofran Inj) 4 mg IVP Q6H PRN PRN Reason: Nausea/Vomiting Last Admin: 04/03/17 06:59 Dose: 4 mg Oxycodone/Acetaminophen (Percocet 5/325 Mg Tab) 2 tab PO Q4H PRN PRN Reason: Pain, moderate (4-7) Stop: 04/05/17 17:27 Pantoprazole Sodium (Protonix Inj) 40 mg IVP DAILY [facility] Last Admin: 04/03/17 09:47 Dose: 40 mg - Labs Labs: 04/03/17 06:15 04/03/17 06:15 - Constitutional Appears: No Acute Distress - Head Exam Head Exam: ATRAUMATIC, NORMAL INSPECTION, NORMOCEPHALIC - Eye Exam Eye Exam: EOMI, PERRL - ENT Exam ENT Exam: Mucous Membranes Moist - Respiratory Exam Respiratory Exam: Clear to Ausculation Bilateral, NORMAL BREATHING PATTERN. absent: Rhonchi, Wheezes - Cardiovascular Exam Cardiovascular Exam: REGULAR RHYTHM, +S1, +S2 - GI/Abdominal Exam GI & Abdominal Exam: Soft, Normal Bowel Sounds Additional comments: RUQ surgical incision with dressing c/d/i. Luis Miguel drain with serosanguinous fluid , estevez in place, both drains intact - Extremities Exam Extremities Exam: absent: Calf Tenderness, Pedal Edema - Neurological Exam Neurological Exam: Alert, Awake, Oriented x3 - Psychiatric Exam Psychiatric exam: Normal Affect, Normal Mood - Skin Skin Exam: Dry, Intact, Warm. absent: Rash Assessment and Plan - Assessment and Plan (Free Text) Assessment: 51yo M with PMHx of GERD presented with abdominal pain and was found to have cholecystitis, need to rule out choledocholithiasis. Patient is s/p lap converted to open subtotal ryan w/ drain x2 Plan: - Afebrile, VSS - No leukocytosis - Bilirubin elevated at 0.8 trending down - LFTs show mild elevation AST, ALT wnl - CT: gallbladder distention w/ gallstones, gallbladder wall thickening & pericholecystic inflammation suggesting acute on chronic cholecystitis; fat containing umbilical hernia; bilateral fat containing inguinal hernias - Abdominal US: - NPO, IV fluids - IV Antibiotics: Rocephin and Flagyl per medicine team - Morphine and Zofran PRN - Patient is s/p laproscopic converted to open subtotal cholecystectomy with placement of two drains - POD #1 - Encourage mobility, to chair, diet as tolerated, fluids - Discussed plan with Dr. Caal
[2017-04-03] MEDS ORDERED: Simethicone 80 mg Chewtab PO STA (23:10)
--- NOTE | 2017-04-03 23:50 | CP.PCM.CON ---
History of Present Illness - History of Present Illness History of Present Illness: Infectious Disease Consultation: April 03, 2017 51 yo male with initial presentation of abdominal pain, nausea, and vomiting. The patient found to have cholecystitis on the Abdominal CT. History of previous cholecystitis and believed to be an onhau-qh-dxnnpuc cholecystitis. Extensive medical history that includes gallstones, fatty liver, diverticulosis , GERDs. Taken to OR for cholecystectomy with low grade fevers 24 hours after surgery performed. PMHx: GERDs, diverticulosis, fatty liver, gallstones PSHx: Right leg fracture and repair. Allergies: PCN Social Hx: No tobacco, EtOH, or illicit drug use Active Medications Acetaminophen (Tylenol 325mg Tab) 650 mg PO Q6H PRN PRN Reason: Fever >100.4 F Last Admin: 04/03/17 08:21 Dose: 650 mg Famotidine (Pepcid) 40 mg PO HS PRN PRN Reason: gerd Last Admin: 04/02/17 21:59 Dose: 40 mg Heparin Sodium (Porcine) (Heparin) 5,000 units SC Q12 [facility] PRN Reason: Protocol Last Admin: 04/03/17 21:45 Dose: 5,000 units Hydromorphone HCl (Dilaudid) 1 mg IVP Q4H PRN PRN Reason: Pain, severe (8-10) Last Admin: 04/03/17 22:34 Dose: 1 mg Metronidazole (Flagyl) 500 mg in 100 mls @ 100 mls/hr IVPB Q8 [facility] PRN Reason: Protocol Last Admin: 04/03/17 21:40 Dose: 100 mls/hr Ceftriaxone Sodium (Rocephin 1 Gram Ivpb (D5w)) 1 gm in 100 mls @ 100 mls/hr IVPB DAILY [facility] PRN Reason: Protocol Last Admin: 04/03/17 09:48 Dose: 100 mls/hr Sodium Chloride (Sodium Chloride 0.9%) 1,000 mls @ 100 mls/hr IV .Q10H [facility] Last Admin: 04/03/17 08:57 Dose: 100 mls/hr Insulin Human Regular (Humulin R Low) 0 units SC ACHS [facility] PRN Reason: Protocol Last Admin: 04/03/17 17:22 Dose: Not Given Morphine Sulfate (Morphine) 2 mg IVP Q4H PRN PRN Reason: Pain, severe (8-10) Last Admin: 04/01/17 20:14 Dose: 2 mg Nitroglycerin (Nitro-Bid 2% Oint) 1 ea TOP Q4H PRN PRN Reason: Other Last Admin: 03/31/17 08:42 Dose: 1 ea Ondansetron HCl (Zofran Inj) 4 mg IVP Q6H PRN PRN Reason: Nausea/Vomiting Last Admin: 04/03/17 06:59 Dose: 4 mg Oxycodone/Acetaminophen (Percocet 5/325 Mg Tab) 2 tab PO Q4H PRN PRN Reason: Pain, moderate (4-7) Stop: 04/05/17 17:27 Pantoprazole Sodium (Protonix Inj) 40 mg IVP DAILY [facility] Last Admin: 04/03/17 09:47 Dose: 40 mg Family Hx: none given ROS: fevers, chills, nausea, abdominal pain No chest pain, melena, hematuria, hematemesis, hematochezia, depression, anxiety Past Patient History - Past Social History Smoking Status: Never Smoked - CARDIAC Hx Cardiac Disorders: No - PULMONARY Hx Respiratory Disorders: No - NEUROLOGICAL Hx Neurological Disorder: No - HEENT Hx HEENT Problems: No - RENAL Hx Chronic Kidney Disease: No - ENDOCRINE/METABOLIC Hx Endocrine Disorders: No - HEMATOLOGICAL/ONCOLOGICAL Hx Blood Transfusions: No Hx Blood Transfusion Reaction: No - INTEGUMENTARY Hx Dermatological Problems: No - MUSCULOSKELETAL/RHEUMATOLOGICAL Hx Musculoskeletal Disorders: No Hx Falls: Yes Hx Fractures: Yes (leg 2010) - GASTROINTESTINAL Hx Gastrointestinal Disorders: Yes Hx Gastroesophageal Reflux: Yes - GENITOURINARY/GYNECOLOGICAL Hx Genitourinary Disorders: No - PSYCHIATRIC Hx Psychophysiologic Disorder: No - SURGICAL HISTORY Hx Surgeries: Yes (2010 broken left leg/has plates & screws) - ANESTHESIA Hx Anesthesia Reactions: No Hx Malignant Hyperthermia: No Meds Allergies/Adverse Reactions: Allergies Allergy/AdvReac Type Severity Reaction Status Date / Time Penicillins Allergy RASH Verified 03/31/17 02:52 - Medications Medications: Current Medications Acetaminophen (Tylenol 325mg Tab) 650 mg PO Q6H PRN PRN Reason: Fever >100.4 F Last Admin: 04/03/17 08:21 Dose: 650 mg Famotidine (Pepcid) 40 mg PO HS PRN PRN Reason: gerd Last Admin: 04/02/17 21:59 Dose: 40 mg Heparin Sodium (Porcine) (Heparin) 5,000 units SC Q12 [facility] PRN Reason: Protocol Last Admin: 04/03/17 21:45 Dose: 5,000 units Hydromorphone HCl (Dilaudid) 1 mg IVP Q4H PRN PRN Reason: Pain, severe (8-10) Last Admin: 04/03/17 22:34 Dose: 1 mg Metronidazole (Flagyl) 500 mg in 100 mls @ 100 mls/hr IVPB Q8 [facility] PRN Reason: Protocol Last Admin: 04/03/17 21:40 Dose: 100 mls/hr Ceftriaxone Sodium (Rocephin 1 Gram Ivpb (D5w)) 1 gm in 100 mls @ 100 mls/hr IVPB DAILY [facility] PRN Reason: Protocol Last Admin: 04/03/17 09:48 Dose: 100 mls/hr Sodium Chloride (Sodium Chloride 0.9%) 1,000 mls @ 100 mls/hr IV .Q10H [facility] Last Admin: 04/03/17 08:57 Dose: 100 mls/hr Insulin Human Regular (Humulin R Low) 0 units SC ACHS [facility] PRN Reason: Protocol Last Admin: 04/03/17 17:22 Dose: Not Given Morphine Sulfate (Morphine) 2 mg IVP Q4H PRN PRN Reason: Pain, severe (8-10) Last Admin: 04/01/17 20:14 Dose: 2 mg Nitroglycerin (Nitro-Bid 2% Oint) 1 ea TOP Q4H PRN PRN Reason: Other Last Admin: 03/31/17 08:42 Dose: 1 ea Ondansetron HCl (Zofran Inj) 4 mg IVP Q6H PRN PRN Reason: Nausea/Vomiting Last Admin: 04/03/17 06:59 Dose: 4 mg Oxycodone/Acetaminophen (Percocet 5/325 Mg Tab) 2 tab PO Q4H PRN PRN Reason: Pain, moderate (4-7) Stop: 04/05/17 17:27 Pantoprazole Sodium (Protonix Inj) 40 mg IVP DAILY [facility] Last Admin: 04/03/17 09:47 Dose: 40 mg Physical Exam - Constitutional Appears: Non-toxic, No Acute Distress - Head Exam Head Exam: ATRAUMATIC, NORMOCEPHALIC - Eye Exam Eye Exam: EOMI, PERRL Pupil Exam: NORMAL ACCOMODATION, PERRL - ENT Exam ENT Exam: Mucous Membranes Moist, Normal External Ear Exam, TM's Normal Bilaterally - Neck Exam Neck exam: Positive for: Full Rom, Normal Inspection - Respiratory Exam Respiratory Exam: Clear to Auscultation Bilateral, NORMAL BREATHING PATTERN. absent: Rales, Rhonchi, Wheezes - Cardiovascular Exam Cardiovascular Exam: REGULAR RHYTHM, RRR, +S1, +S2 - GI/Abdominal Exam GI & Abdominal Exam: Normal Bowel Sounds, Soft. absent: Distended, Tenderness Additional comments: RUQ surgical incision with dressing c/d/i. Luis Miguel drain with serosanguinous fluid , estevez in place, both drains intact - Extremities Exam Extremities exam: Positive for: full ROM, normal inspection. Negative for: joint swelling, pedal edema - Neurological Exam Neurological exam: Alert, CN II-XII Intact, Oriented x3 - Psychiatric Exam Psychiatric exam: Normal Affect, Normal Mood - Skin Skin Exam: Intact, Normal Color Results - Vital Signs Recent Vital Signs: Last Vital Signs Temp 100.7 F H 04/03/17 08:21 Pulse 98 H 04/03/17 08:00 Resp 20 04/03/17 08:00 BP 118/76 04/03/17 08:00 Pulse Ox 95 04/03/17 08:00 - Labs Result Diagrams: 04/03/17 06:15 04/03/17 06:15 Labs: Laboratory Results - last 24 hr 04/03/17 04/03/17 04/03/17 06:15 06:15 07:21 WBC 8.3 RBC 4.36 Hgb 12.4 L Hct 37.2 L MCV 85.3 MCH 28.4 MCHC 33.3 RDW 13.3 Plt Count 182 MPV 9.9 Gran % 72.0 H Lymph % (Auto) 15.7 L Kendall % (Auto) 12.2 H Eos % (Auto) 0.0 L Baso % (Auto) 0.1 Gran # 6.00 Lymph # 1.3 Kendall # 1.0 H Eos # 0.0 Baso # 0.01 Sodium 138 Potassium 4.1 Chloride 103 Carbon Dioxide 26 Anion Gap 13 BUN 16 Creatinine 0.9 Est GFR ( Amer) > 60 Est GFR (Non-Af Amer) > 60 POC Glucose (mg/dL) 142 H Random Glucose 148 H Calcium 7.9 L Total Bilirubin 0.8 AST 69 H D ALT 54 Alkaline Phosphatase 113 Total Protein 6.0 Albumin 3.1 Globulin 2.9 Albumin/Globulin Ratio 1.1 04/03/17 04/03/17 04/03/17 11:38 16:22 21:24 WBC RBC Hgb Hct MCV MCH MCHC RDW Plt Count MPV Gran % Lymph % (Auto) Kendall % (Auto) Eos % (Auto) Baso % (Auto) Gran # Lymph # Kendall # Eos # Baso # Sodium Potassium Chloride Carbon Dioxide Anion Gap BUN Creatinine Est GFR ( Amer) Est GFR (Non-Af Amer) POC Glucose (mg/dL) 155 H 161 H 154 H Random Glucose Calcium Total Bilirubin AST ALT Alkaline Phosphatase Total Protein Albumin Globulin Albumin/Globulin Ratio Assessment & Plan - Assessment and Plan (Free Text) Assessment: 51 yo male with acute on chronic cholecystitis who had cholecystectomy yesterday. Low grade fevers up to 100.7 F. On Rocephin for antibiotic care. The low grade fever may by post operative which can occur up to 72 hours after the initial surgery. Monitor WBC and fever trend. Can maintain Rocephin for the time being. Butler cultures. Initial cultures done on patient have been negative. Supportive care. Fevers are most likely to resolve on their own as post operative fevers are the most likely scenario. Thank you for allowing me to participate in the care of the patient, we will follow with you.
[2017-04-04] MEDS: Insulin Reg-LOW-Coverage SC SCH ×4 (03:10→17:21)
[2017-04-04] MEDS: Sodium Chloride 0.9% 1,000 ML IV SCH ×2 (03:11→09:59)
[2017-04-04] MEDS: HYDROmorphone 1 mg/ml ISec IVP PRN ×2 (04:07→10:38)
[2017-04-04] MEDS: metroNIDAZOLE IV 500 mg/100 ml 500 MG/100 ML BAG IVPB SCH ×3 (05:21→21:34)
--- NOTE | 2017-04-04 08:06 | PN ---
DATE: 04/03/2017 SUBJECTIVE: This 51-year-old male was examined at his bedside in the presence of his nurse, Deidre, and his . The patient is status post an open procedure cholecystectomy by Dr. Sukumar Krishnan on 04/02/2017. The patient is lying in bed. He is tolerating liquids, but has declined eating solid food because of nausea. The patient denies chest pain. PHYSICAL EXAMINATION: VITAL SIGNS: Temperature earlier today was 100.7, respirations 20, pulse 98, blood pressure 118/76 with a pulse ox of 95% on room air. HEENT: Head: Normocephalic, atraumatic. Eyes: No icterus. Ears: Clear. Throat: Noninjected. NECK: Supple. HEART: Regular S1, S2. LUNGS: Clear. ABDOMEN: Soft. There is a Escobar-Aceves exiting his abdominal dressing, draining serosanguineous fluid. VASCULAR: Legs warm to touch. PSYCHOLOGIC: Alert and oriented x3. NEUROLOGIC: Grossly intact. LABORATORY DATA: White count 8300, hemoglobin 12.4, hematocrit 37.2, platelets 182,000. Sodium 138, K 4.1, chloride 103, bicarb 26, BUN 16, creatinine 0.9, random blood sugar 155. Bilirubin 0.8, AST 69, ALT 54 and alk phos 113. Blood cultures x2 showed no growth. Urine culture showed no growth. IMPRESSION: This is a 51-year-old male with [id number] cholecystitis with postoperative fever in the setting of failed laparoscopic cholecystectomy and a open cholecystectomy with perioperative hyperglycemia, anxiety and expected pain. PLAN: At present, is to continue incentive spirometry, diet as per Surgery. He is wearing antiembolism stockings and has been ordered out of bed to chair with physical therapy for ambulation safety. He continues on 0.9 saline at 100 mL/hour. He will continue on Rocephin 1 g IV q. 24 h., Flagyl 500 mg IV q. 8 h., heparin 5000 units subcu q. 12 h. until he is fully ambulatory and regular low-dose insulin protocol before meals and at bedtime. He is ordered to receive Pepcid 40 mg p.o. at bedtime p.r.n. gastroesophageal reflux disease. He has an order for Protonix 40 mg IV daily by surgery. He has morphine for severe pain, Percocet for moderate pain and I will order an ID evaluation with Dr. Glass for completeness sake. All of the above was explained in detail to the patient, and nursing at bedside. All questions were answered. Tiffanie Marrero MD MTDD
[2017-04-04] MEDS: cefTRIAXone 1 gm 1 GM/100 ML BAG IVPB SCH (09:59)
--- NOTE | 2017-04-04 10:04 | CP.PCM.PN ---
Subjective - Date & Time of Evaluation Date of Evaluation: 04/04/17 Time of Evaluation: 07:30 - Subjective Subjective: COG-PGY1 GENERAL SURGERY PROGRESS NOTE FOR DR. CAAL Patient seen and examined at bedside. No acute events overnight reported. Patient continues to express RUQ abdominal pain related to incision site. Patient reports ambulating yesterday, passing flatus. Denies chest pain, shortness of breath, fever, chills, nausea, vomiting. Objective - Vital Signs/Intake and Output Vital Signs (last 24 hours): Temp Pulse Resp BP Pulse Ox 99.3 F 88 18 111/78 93 L 04/04/17 08:00 04/04/17 08:00 04/04/17 08:00 04/04/17 08:00 04/04/17 08:00 Intake and Output: 04/04/17 04/04/17 06:59 18:59 Intake Total 240 Balance 240 - Medications Medications: Current Medications Acetaminophen (Tylenol 325mg Tab) 650 mg PO Q6H PRN PRN Reason: Fever >100.4 F Last Admin: 04/03/17 08:21 Dose: 650 mg Famotidine (Pepcid) 40 mg PO HS PRN PRN Reason: gerd Last Admin: 04/02/17 21:59 Dose: 40 mg Heparin Sodium (Porcine) (Heparin) 5,000 units SC Q12 ANAIS PRN Reason: Protocol Last Admin: 04/03/17 21:45 Dose: 5,000 units Hydromorphone HCl (Dilaudid) 1 mg IVP Q4H PRN PRN Reason: Pain, severe (8-10) Last Admin: 04/04/17 04:07 Dose: 1 mg Metronidazole (Flagyl) 500 mg in 100 mls @ 100 mls/hr IVPB Q8 ANAIS PRN Reason: Protocol Last Admin: 04/04/17 05:21 Dose: 100 mls/hr Ceftriaxone Sodium (Rocephin 1 Gram Ivpb (D5w)) 1 gm in 100 mls @ 100 mls/hr IVPB DAILY ANAIS PRN Reason: Protocol Last Admin: 04/03/17 09:48 Dose: 100 mls/hr Sodium Chloride (Sodium Chloride 0.9%) 1,000 mls @ 100 mls/hr IV .Q10H [facility] Last Admin: 04/04/17 03:11 Dose: 100 mls/hr Insulin Human Regular (Humulin R Low) 0 units SC ACHS ANAIS PRN Reason: Protocol Last Admin: 04/04/17 08:11 Dose: Not Given Nitroglycerin (Nitro-Bid 2% Oint) 1 ea TOP Q4H PRN PRN Reason: Other Last Admin: 03/31/17 08:42 Dose: 1 ea Ondansetron HCl (Zofran Inj) 4 mg IVP Q6H PRN PRN Reason: Nausea/Vomiting Last Admin: 04/03/17 06:59 Dose: 4 mg Oxycodone/Acetaminophen (Percocet 5/325 Mg Tab) 2 tab PO Q4H PRN PRN Reason: Pain, moderate (4-7) Stop: 04/05/17 17:27 Pantoprazole Sodium (Protonix Inj) 40 mg IVP DAILY [facility] Last Admin: 04/03/17 09:47 Dose: 40 mg - Labs Labs: 04/03/17 06:15 04/03/17 06:15 - Constitutional Appears: No Acute Distress - Head Exam Head Exam: ATRAUMATIC, NORMAL INSPECTION, NORMOCEPHALIC - Eye Exam Eye Exam: EOMI, PERRL - ENT Exam ENT Exam: Mucous Membranes Moist - Neck Exam Neck Exam: Full ROM - Respiratory Exam Respiratory Exam: Clear to Ausculation Bilateral, NORMAL BREATHING PATTERN - Cardiovascular Exam Cardiovascular Exam: REGULAR RHYTHM, +S1, +S2 - GI/Abdominal Exam GI & Abdominal Exam: Distended, Soft, Normal Bowel Sounds. absent: Firm, Guarding, Rigid Additional comments: RUQ surgical incision with dressing c/d/i. Luis Miguel drain with serosanguinous fluid , estevez in place, both drains intact - Extremities Exam Extremities Exam: absent: Calf Tenderness, Pedal Edema - Neurological Exam Neurological Exam: Alert, Awake, Oriented x3 - Psychiatric Exam Psychiatric exam: Normal Affect, Normal Mood - Skin Skin Exam: Dry, Intact. absent: Rash Assessment and Plan - Assessment and Plan (Free Text) Assessment: 51yo M with PMHx of GERD presented with abdominal pain and was found to have cholecystitis, need to rule out choledocholithiasis. Patient is s/p lap converted to open subtotal ryan w/ drain x2 Plan: - VSS, No leukocytosis - CT: gallbladder distention w/ gallstones, gallbladder wall thickening & pericholecystic inflammation suggesting acute on chronic cholecystitis; fat containing umbilical hernia; bilateral fat containing inguinal hernias - Abdominal US(04/01/2017): evidence of stones and sludge within gb, 7mm wall gb wall thickening, focal tenderness - IV Antibiotics: Rocephin and Flagyl per medicine team - Zofran PRN - Patient is s/p laproscopic converted to open subtotal cholecystectomy with placement of two drains - POD #2 - Encourage mobility, to chair, diet as tolerated, fluids - simethicone for gas/abd distention - Discussed plan with Dr. Caal
[2017-04-04] MEDS ORDERED: Sodium Chloride 0.9% 1,000 ML IV SCH (12:04)
[2017-04-04] MEDS ORDERED: Morphine 2 mg/ml ISec IVP PRN (12:05)
[2017-04-04] MEDS ORDERED: Simethicone 80 mg Chewtab PO PRN (12:33)
[2017-04-04] MEDS ORDERED: Alum-Mag Hydrox-Simethicone Susp (30 mL) PO ONE (12:36)
[2017-04-04] MEDS ORDERED: HYDROmorphone 0.5 mg/0.5 ml ISec IVP PRN (12:38)
--- NOTE | 2017-04-04 15:39 | PN ---
DATE: 04/04/2017 SUBJECTIVE: This 51-year-old male was examined at his bedside in the presence of his , and his case was reviewed in detail with his nurse, Cheryl, also present at the bedside. The patient was seen by Surgery earlier this morning. He has been advanced to a regular diet. He is wearing anti-embolism sequential compression device stockings and was ambulated by physical therapy earlier today. He denies fever or chills, and has been running low-grade postoperative fevers. This has been discussed with Dr. Gerardo Glass from Infectious Disease, who feels that this is consistent with normal postoperative surgical course, and he recommends that the patient continue on current antibiotics which include IV Rocephin and Flagyl. The patient denies nausea or vomiting. PHYSICAL EXAMINATION: VITAL SIGNS: Temperature 99.3, respirations 18, pulse 88, blood pressure 111/78, pulse ox 95% room air. HEENT: Head, normocephalic, atraumatic. Eyes, no icterus. Ears, clear. Throat, noninjected. NECK: Supple. HEART: Regular, S1, S2. LUNGS: Clear. ABDOMEN: Soft with a Escobar-Aceves and Carrasco drain showing small amounts of serosanguineous fluid. EXTREMITIES: Show no clubbing, no cyanosis, no edema. He is wearing his antiembolism stockings. VASCULAR: Legs warm to touch. PSYCHOLOGICAL: Alert and oriented x3. NEURO: Grossly intact. LABORATORY DATA: White count 8300, hemoglobin 12.4, hematocrit 37.2, platelets 182,000. Sodium 138, K 4.1, chloride 103, bicarb 26, BUN 16, creatinine 0.9, random blood sugar 100. Bilirubin 0.8, AST 69, ALT is 54, alk phos 113. Blood and urine cultures negative to date. IMPRESSION: A 51-year-old male status post [id number] cholecystitis and open cholecystectomy with comorbidities of postoperative fever and deconditioning. PLAN: As discussed with the patient, , and nursing as well as Surgery and Infectious Disease. He is to continue Morphine 2 mg IV q.4 hours p.r.n. severe pain, Flagyl 500 mg IV q.8, Rocephin 1 g IV q.24, heparin 5000 units subcutaneously q.12, regular low-dose insulin protocol a.c. meals and at bedtime, Pepcid 40 mg p.o. at bedtime p.r.n. gastroesophageal reflux disease, Protonix 40 mg IV daily, IV fluids at 40 mL per hour since the patient is drinking adequately, and the patient has been instructed on the use of incentive spirometry and need for ambulation safety. As discussed with the patient and , once the patient is cleared by Infectious Disease and Surgery, he will be discharged to home for outpatient followup. Greater than 35 minutes was spent in the care management, review of orders, and outlining of additional treatment plan for the patient today. All questions were answered. Tiffanie Marrero MD MTDD
--- NOTE | 2017-04-04 16:43 | CP.PCM.PN ---
Subjective - Date & Time of Evaluation Date of Evaluation: 04/04/17 Time of Evaluation: 15:15 - Subjective Subjective: Infectious Disease Follow Up: April 04, 2017 51 yo male with initial presentation of abdominal pain, nausea, and vomiting. The patient found to have cholecystitis on the Abdominal CT. History of previous cholecystitis and believed to be an [id number] cholecystitis. Extensive medical history that includes gallstones, fatty liver, diverticulosis , GERDs. Taken to OR for cholecystectomy with low grade fevers 24 hours after surgery performed. Afebrile so far today. No major complaints. Currently on Rocephin and Flagyl. Objective - Vital Signs/Intake and Output Vital Signs (last 24 hours): Temp Pulse Resp BP Pulse Ox 99.3 F 88 18 111/78 93 L 04/04/17 08:00 04/04/17 08:00 04/04/17 08:00 04/04/17 08:00 04/04/17 08:00 Intake and Output: 04/04/17 04/04/17 06:59 18:59 Intake Total 240 240 Output Total 300 Balance 240 -60 - Medications Medications: Current Medications Acetaminophen (Tylenol 325mg Tab) 650 mg PO Q6H PRN PRN Reason: Fever >100.4 F Last Admin: 04/03/17 08:21 Dose: 650 mg Famotidine (Pepcid) 40 mg PO HS PRN PRN Reason: gerd Last Admin: 04/02/17 21:59 Dose: 40 mg Heparin Sodium (Porcine) (Heparin) 5,000 units SC Q12 ANAIS PRN Reason: Protocol Last Admin: 04/04/17 10:01 Dose: 5,000 units Hydromorphone HCl (Dilaudid) 0.5 mg IVP Q4H PRN PRN Reason: Pain, severe (8-10) Metronidazole (Flagyl) 500 mg in 100 mls @ 100 mls/hr IVPB Q8 ANAIS PRN Reason: Protocol Last Admin: 04/04/17 13:06 Dose: 100 mls/hr Ceftriaxone Sodium (Rocephin 1 Gram Ivpb (D5w)) 1 gm in 100 mls @ 100 mls/hr IVPB DAILY ANAIS PRN Reason: Protocol Last Admin: 04/04/17 09:59 Dose: 100 mls/hr Sodium Chloride (Sodium Chloride 0.9%) 1,000 mls @ 40 mls/hr IV .Q24H [facility] Insulin Human Regular (Humulin R Low) 0 units SC ACHS ANAIS PRN Reason: Protocol Last Admin: 04/04/17 11:43 Dose: Not Given Ketorolac Tromethamine (Toradol) 15 mg IVP Q4 PRN PRN Reason: Pain, moderate (4-7) Nitroglycerin (Nitro-Bid 2% Oint) 1 ea TOP Q4H PRN PRN Reason: Other Last Admin: 03/31/17 08:42 Dose: 1 ea Ondansetron HCl (Zofran Inj) 4 mg IVP Q6H PRN PRN Reason: Nausea/Vomiting Last Admin: 04/03/17 06:59 Dose: 4 mg Oxycodone/Acetaminophen (Percocet 5/325 Mg Tab) 2 tab PO Q4H PRN PRN Reason: Pain, moderate (4-7) Stop: 04/05/17 17:27 Pantoprazole Sodium (Protonix Inj) 40 mg IVP DAILY [facility] Last Admin: 04/04/17 10:00 Dose: 40 mg Simethicone (Mylicon Chew Tab) 80 mg PO PCHS PRN PRN Reason: GI distress - Labs Labs: 04/03/17 06:15 04/03/17 06:15 - Constitutional Appears: Non-toxic, No Acute Distress - Head Exam Head Exam: ATRAUMATIC, NORMOCEPHALIC - Eye Exam Eye Exam: EOMI, PERRL Pupil Exam: NORMAL ACCOMODATION, PERRL - ENT Exam ENT Exam: Mucous Membranes Moist, Normal External Ear Exam, TM's Normal Bilaterally - Neck Exam Neck Exam: Full ROM, Normal Inspection - Respiratory Exam Respiratory Exam: Clear to Ausculation Bilateral, NORMAL BREATHING PATTERN. absent: Rales, Rhonchi, Wheezes - Cardiovascular Exam Cardiovascular Exam: REGULAR RHYTHM, RRR, +S1, +S2 - GI/Abdominal Exam GI & Abdominal Exam: Soft, Normal Bowel Sounds. absent: Distended, Tenderness Additional comments: RUQ surgical incision with dressing c/d/i. Luis Miguel drain with serosanguinous fluid , estevez in place, both drains intact - Extremities Exam Extremities Exam: Full ROM, Normal Inspection - Neurological Exam Neurological Exam: Alert, Awake, CN II-XII Intact, Oriented x3 - Psychiatric Exam Psychiatric exam: Normal Affect, Normal Mood - Skin Skin Exam: Intact, Normal Color Assessment and Plan - Assessment and Plan (Free Text) Assessment: 51 yo male with acute on chronic cholecystitis who had cholecystectomy yesterday. Low grade fevers up to 100.7 F. On Rocephin and Flagyl for antibiotic care. The low grade fever may be post operative which can occur up to 72 hours after the initial surgery. Monitor WBC and fever trend. Can maintain Rocephin for the time being. Butler cultures. Initial cultures done on patient have been negative. Supportive care. Fevers are most likely to resolve on their own as post operative fevers are the most likely scenario. Afebrile so far today. Still no leukocytosis. Thank you for allowing me to participate in the care of the patient, we will follow with you.
[2017-04-05] MEDS: Insulin Reg-LOW-Coverage SC SCH ×5 (02:27→21:57)
[2017-04-05] MEDS: metroNIDAZOLE IV 500 mg/100 ml 500 MG/100 ML BAG IVPB SCH ×3 (05:52→21:03)
[2017-04-05 09:17] VITALS: O2SAT 95
[2017-04-05] MEDS ORDERED: Oxycodone/Acetaminophen 5/325 mg Tab PO PRN (09:37)
--- NOTE | 2017-04-05 09:40 | CP.PCM.PN ---
Subjective - Date & Time of Evaluation Date of Evaluation: 04/05/17 Time of Evaluation: 06:45 Objective - Vital Signs/Intake and Output Vital Signs (last 24 hours): Temp Pulse Resp BP Pulse Ox 99.0 F 86 18 131/94 H 95 04/05/17 08:00 04/05/17 08:00 04/05/17 08:00 04/05/17 08:00 04/05/17 08:00 Intake and Output: 04/05/17 04/05/17 06:59 18:59 Intake Total 1560 Output Total 285 Balance 1275 - Medications Medications: Current Medications Acetaminophen (Tylenol 325mg Tab) 650 mg PO Q6H PRN PRN Reason: Fever >100.4 F Last Admin: 04/03/17 08:21 Dose: 650 mg Docusate Sodium (Colace) 100 mg PO TID [facility] Last Admin: 04/04/17 18:08 Dose: 100 mg Famotidine (Pepcid) 40 mg PO HS PRN PRN Reason: gerd Last Admin: 04/02/17 21:59 Dose: 40 mg Heparin Sodium (Porcine) (Heparin) 5,000 units SC Q12 ANAIS PRN Reason: Protocol Last Admin: 04/04/17 21:32 Dose: 5,000 units Hydromorphone HCl (Dilaudid) 0.5 mg IVP Q4H PRN PRN Reason: Pain, severe (8-10) Last Admin: 04/04/17 22:48 Dose: 0.5 mg Metronidazole (Flagyl) 500 mg in 100 mls @ 100 mls/hr IVPB Q8 ANAIS PRN Reason: Protocol Last Admin: 04/05/17 05:52 Dose: 100 mls/hr Ceftriaxone Sodium (Rocephin 1 Gram Ivpb (D5w)) 1 gm in 100 mls @ 100 mls/hr IVPB DAILY ANAIS PRN Reason: Protocol Last Admin: 04/04/17 09:59 Dose: 100 mls/hr Sodium Chloride (Sodium Chloride 0.9%) 1,000 mls @ 40 mls/hr IV .Q24H [facility] Insulin Human Regular (Humulin R Low) 0 units SC ACHS ANAIS PRN Reason: Protocol Last Admin: 04/05/17 08:39 Dose: Not Given Ketorolac Tromethamine (Toradol) 15 mg IVP Q4 PRN PRN Reason: Pain, moderate (4-7) Nitroglycerin (Nitro-Bid 2% Oint) 1 ea TOP Q4H PRN PRN Reason: Other Last Admin: 03/31/17 08:42 Dose: 1 ea Ondansetron HCl (Zofran Inj) 4 mg IVP Q6H PRN PRN Reason: Nausea/Vomiting Last Admin: 04/03/17 06:59 Dose: 4 mg Oxycodone/Acetaminophen (Percocet 5/325 Mg Tab) 2 tab PO Q4H PRN PRN Reason: Pain, moderate (4-7) Stop: 04/05/17 17:27 Pantoprazole Sodium (Protonix Inj) 40 mg IVP DAILY ANAIS Last Admin: 04/04/17 10:00 Dose: 40 mg Simethicone (Mylicon Chew Tab) 80 mg PO PCHS PRN PRN Reason: GI distress - Labs Labs: 04/03/17 06:15 04/03/17 06:15 - Head Exam Head Exam: ATRAUMATIC - GI/Abdominal Exam Additional comments: RUQ surgical incision with dressing c/d/i. Luis Miguel drain with serosanguinous fluid , right abdominal inferior estevez in place, both drains intact
--- NOTE | 2017-04-05 09:49 | CP.PCM.PN ---
Subjective - Date & Time of Evaluation Date of Evaluation: 04/05/17 Time of Evaluation: 06:45 - Subjective Subjective: COG-PGY1 GENERAL SURGERY PROGRESS NOTE FOR DR. CAAL Patient seen and examined at bedside. No acute events overnight reported. Patient reports bowel movement, passing flatus and increased ambulation. Pain is controlled. Denies chest pain, shortness of breath, fever, chills, nausea, vomiting. Objective - Vital Signs/Intake and Output Vital Signs (last 24 hours): Temp Pulse Resp BP Pulse Ox 99.0 F 86 18 131/94 H 95 04/05/17 08:00 04/05/17 08:00 04/05/17 08:00 04/05/17 08:00 04/05/17 08:00 Intake and Output: 04/05/17 04/05/17 06:59 18:59 Intake Total 1560 Output Total 285 Balance 1275 - Medications Medications: Current Medications Acetaminophen (Tylenol 325mg Tab) 650 mg PO Q6H PRN PRN Reason: Fever >100.4 F Last Admin: 04/03/17 08:21 Dose: 650 mg Docusate Sodium (Colace) 100 mg PO TID [facility] Last Admin: 04/04/17 18:08 Dose: 100 mg Famotidine (Pepcid) 40 mg PO HS PRN PRN Reason: gerd Last Admin: 04/02/17 21:59 Dose: 40 mg Heparin Sodium (Porcine) (Heparin) 5,000 units SC Q12 ANAIS PRN Reason: Protocol Last Admin: 04/04/17 21:32 Dose: 5,000 units Hydromorphone HCl (Dilaudid) 0.5 mg IVP Q4H PRN PRN Reason: Pain, severe (8-10) Last Admin: 04/04/17 22:48 Dose: 0.5 mg Metronidazole (Flagyl) 500 mg in 100 mls @ 100 mls/hr IVPB Q8 ANAIS PRN Reason: Protocol Last Admin: 04/05/17 05:52 Dose: 100 mls/hr Ceftriaxone Sodium (Rocephin 1 Gram Ivpb (D5w)) 1 gm in 100 mls @ 100 mls/hr IVPB DAILY ANAIS PRN Reason: Protocol Last Admin: 04/04/17 09:59 Dose: 100 mls/hr Sodium Chloride (Sodium Chloride 0.9%) 1,000 mls @ 40 mls/hr IV .Q24H [facility] Insulin Human Regular (Humulin R Low) 0 units SC ACHS ANAIS PRN Reason: Protocol Last Admin: 04/05/17 08:39 Dose: Not Given Nitroglycerin (Nitro-Bid 2% Oint) 1 ea TOP Q4H PRN PRN Reason: Other Last Admin: 03/31/17 08:42 Dose: 1 ea Ondansetron HCl (Zofran Inj) 4 mg IVP Q6H PRN PRN Reason: Nausea/Vomiting Last Admin: 04/03/17 06:59 Dose: 4 mg Oxycodone/Acetaminophen (Percocet 5/325 Mg Tab) 1 tab PO Q4H PRN PRN Reason: Pain, moderate (4-7) Stop: 04/05/17 17:27 Pantoprazole Sodium (Protonix Inj) 40 mg IVP DAILY [facility] Last Admin: 04/04/17 10:00 Dose: 40 mg Simethicone (Mylicon Chew Tab) 80 mg PO PCHS PRN PRN Reason: GI distress - Labs Labs: 04/03/17 06:15 04/03/17 06:15 - Constitutional Appears: No Acute Distress - Head Exam Head Exam: ATRAUMATIC, NORMAL INSPECTION, NORMOCEPHALIC - Eye Exam Eye Exam: EOMI, PERRL - ENT Exam ENT Exam: Mucous Membranes Moist - Respiratory Exam Respiratory Exam: Clear to Ausculation Bilateral, NORMAL BREATHING PATTERN. absent: Rhonchi, Wheezes - Cardiovascular Exam Cardiovascular Exam: REGULAR RHYTHM, +S1, +S2 - GI/Abdominal Exam GI & Abdominal Exam: Soft, Normal Bowel Sounds Additional comments: RUQ surgical incision with dressing c/d/i. Luis Miguel drain with serosanguinous fluid , right abdominal inferior estevez in place, both drains intact - Extremities Exam Extremities Exam: absent: Calf Tenderness, Pedal Edema - Back Exam Back Exam: NORMAL INSPECTION. absent: CVA tenderness (L) - Neurological Exam Neurological Exam: Alert, Awake, Normal Gait, Oriented x3 - Psychiatric Exam Psychiatric exam: Normal Affect, Normal Mood - Skin Skin Exam: Dry, Intact. absent: Rash Assessment and Plan - Assessment and Plan (Free Text) Assessment: 51yo M with PMHx of GERD presented with abdominal pain and was found to have cholecystitis, need to rule out choledocholithiasis. Patient is s/p lap converted to open subtotal ryan w/ drain x2 Plan: - VSS, No leukocytosis - CT: gallbladder distention w/ gallstones, gallbladder wall thickening & pericholecystic inflammation suggesting acute on chronic cholecystitis; fat containing umbilical hernia; bilateral fat containing inguinal hernias - Abdominal US(04/01/2017): evidence of stones and sludge within gb, 7mm wall gb wall thickening, focal tenderness - IV Antibiotics: Rocephin and Flagyl per medicine team - Zofran PRN - Patient is s/p laproscopic converted to open subtotal cholecystectomy with placement of two drains - POD #3 - Encourage mobility, to chair, diet as tolerated, fluids - simethicone for gas/abd distention - VELASQUEZ drain noted to have 10 cc and estevez drain 175 mL over past 24H - Plan to pull VELASQUEZ drain today, exchange estevez bag with leg bag for right inferior abdominal drain - Okay for dc from surgical standpoint - Will discuss plan with Dr. Caal
[2017-04-05] MEDS: cefTRIAXone 1 gm 1 GM/100 ML BAG IVPB SCH (10:58)
[2017-04-05] MEDS ORDERED: Morphine 2 mg/ml ISec IVP PRN (11:16)
--- NOTE | 2017-04-05 18:34 | CP.PCM.PN ---
Subjective - Date & Time of Evaluation Date of Evaluation: 04/05/17 Time of Evaluation: 17:15 - Subjective Subjective: Infectious Disease Follow Up: April 05, 2017 51 yo male with initial presentation of abdominal pain, nausea, and vomiting. The patient found to have cholecystitis on the Abdominal CT. History of previous cholecystitis and believed to be an [id number] cholecystitis. Extensive medical history that includes gallstones, fatty liver, diverticulosis , GERDs. Taken to OR for cholecystectomy with low grade fevers 24 hours after surgery performed. Afebrile so far today. No major complaints. Currently on Rocephin and Flagyl. Patient passing flatus. mild abdominal distension. Objective - Vital Signs/Intake and Output Vital Signs (last 24 hours): Temp Pulse Resp BP Pulse Ox 99.0 F 86 18 131/94 H 95 04/05/17 08:00 04/05/17 08:00 04/05/17 08:00 04/05/17 08:00 04/05/17 08:00 Intake and Output: 04/05/17 04/05/17 06:59 18:59 Intake Total 1560 480 Output Total 285 100 Balance 1275 380 - Medications Medications: Current Medications Acetaminophen (Tylenol 325mg Tab) 650 mg PO Q6H PRN PRN Reason: Fever >100.4 F Last Admin: 04/03/17 08:21 Dose: 650 mg Docusate Sodium (Colace) 100 mg PO TID [facility] Last Admin: 04/05/17 18:10 Dose: 100 mg Metronidazole (Flagyl) 500 mg in 100 mls @ 100 mls/hr IVPB Q8 ANAIS PRN Reason: Protocol Last Admin: 04/05/17 13:31 Dose: 100 mls/hr Ceftriaxone Sodium (Rocephin 1 Gram Ivpb (D5w)) 1 gm in 100 mls @ 100 mls/hr IVPB DAILY ANAIS PRN Reason: Protocol Last Admin: 04/05/17 10:58 Dose: 100 mls/hr Insulin Human Regular (Humulin R Low) 0 units SC ACHS [facility] PRN Reason: Protocol Last Admin: 04/05/17 17:09 Dose: Not Given Morphine Sulfate (Morphine) 2 mg IVP Q6H PRN PRN Reason: severe pain Nitroglycerin (Nitro-Bid 2% Oint) 1 ea TOP Q4H PRN PRN Reason: Other Last Admin: 03/31/17 08:42 Dose: 1 ea Ondansetron HCl (Zofran Inj) 4 mg IVP Q6H PRN PRN Reason: Nausea/Vomiting Last Admin: 04/03/17 06:59 Dose: 4 mg Pantoprazole Sodium (Protonix Ec Tab) 40 mg PO ACB ANAIS Simethicone (Mylicon Chew Tab) 80 mg PO PCHS PRN PRN Reason: GI distress Last Admin: 04/05/17 18:10 Dose: 80 mg - Labs Labs: 04/03/17 06:15 04/03/17 06:15 - Constitutional Appears: Non-toxic, No Acute Distress, Chronically Ill - Head Exam Head Exam: ATRAUMATIC, NORMOCEPHALIC - Eye Exam Eye Exam: EOMI, PERRL Pupil Exam: NORMAL ACCOMODATION, PERRL - ENT Exam ENT Exam: Mucous Membranes Moist, Normal External Ear Exam, TM's Normal Bilaterally - Neck Exam Neck Exam: Full ROM, Normal Inspection - Respiratory Exam Respiratory Exam: Clear to Ausculation Bilateral, NORMAL BREATHING PATTERN. absent: Rales, Rhonchi, Wheezes - Cardiovascular Exam Cardiovascular Exam: REGULAR RHYTHM, RRR, +S1, +S2 - GI/Abdominal Exam GI & Abdominal Exam: Distended, Soft, Normal Bowel Sounds. absent: Tenderness Additional comments: RUQ surgical incision with dressing c/d/i. Luis Miguel drain with serosanguinous fluid , estevez in place, both drains intact. Mild distension. - Extremities Exam Extremities Exam: Full ROM, Normal Inspection - Neurological Exam Neurological Exam: Alert, Awake, CN II-XII Intact, Oriented x3 - Psychiatric Exam Psychiatric exam: Normal Affect, Normal Mood - Skin Skin Exam: Intact (dddddddddd), Normal Color Assessment and Plan - Assessment and Plan (Free Text) Assessment: 51 yo male with acute on chronic cholecystitis who had cholecystectomy yesterday. Low grade fevers up to 100.7 F. On Rocephin and Flagyl for antibiotic care. The low grade fever may be post operative which can occur up to 72 hours after the initial surgery. Monitor WBC and fever trend. Can maintain Rocephin for the time being. Butler cultures. Initial cultures done on patient have been negative. Supportive care. Fevers are most likely to resolve on their own as post operative fevers are the most likely scenario. Afebrile so far today. Still no leukocytosis. No new issues. Passing flatus. Still distended abdomen although slightly improved. Thank you for allowing me to participate in the care of the patient, we will follow with you.
[2017-04-06] MEDS: metroNIDAZOLE IV 500 mg/100 ml 500 MG/100 ML BAG IVPB SCH (05:29)
[2017-04-06 07:10] LABS: BLOOD UREA NITROGEN 16 mg/dL (7-21); CALCIUM 8.5 mg/dL (8.4-10.5); CARBON DIOXIDE 27 mmol/L (21-33); CHLORIDE 104 mmol/L (98-107); GFR AFRICAN-AMERICAN > 60; GLUCOSE,RANDOM 114 mg/dL (70-110); POTASSIUM 3.4 mmol/L (3.6-5.0); SODIUM 137 mmol/L (132-148)
[2017-04-06] MEDS ORDERED: Pantoprazole 40 mg EC Tab PO SCH (07:30)
[2017-04-06 07:53] LABS: HEMATOCRIT 36.4 % (42.0-52.0); MEAN CELL VOLUME 85.4 fl (80.0-105.0); MEAN CORPUSCULAR HEMOGLOBIN 28.4 pg (25.0-35.0); MEAN CORPUSCULAR HGB CONC 33.2 g/dl (31.0-37.0); RED CELL DISTRIBUTION WIDTH 13.1 % (11.5-14.5); WHITE BLOOD COUNT 5.1 10^3/ul (4.5-11.0)
--- NOTE | 2017-04-06 08:13 | CP.PCM.PN ---
Subjective - Date & Time of Evaluation Date of Evaluation: 04/06/17 Time of Evaluation: 06:45 - Subjective Subjective: [id number] GENERAL SURGERY PROGRESS NOTE FOR DR. CAAL Patient seen and examined at bedside. No acute events overnight reported. Over past 24 hours patient VELASQUEZ drain removed surgical dressing changed. Patient reports bowel movement, passing flatus, patient is up to chair and ambulating. Pain is controlled. Denies chest pain, shortness of breath, fever, chills, nausea, vomiting. Objective - Vital Signs/Intake and Output Vital Signs (last 24 hours): Temp Pulse Resp BP Pulse Ox 99.0 F 86 18 131/94 H 95 04/05/17 08:00 04/05/17 08:00 04/05/17 08:00 04/05/17 08:00 04/05/17 08:00 Intake and Output: 04/06/17 04/06/17 06:59 18:59 Intake Total 360 Output Total 10 10 Balance 350 -10 - Medications Medications: Current Medications Acetaminophen (Tylenol 325mg Tab) 650 mg PO Q6H PRN PRN Reason: Fever >100.4 F Last Admin: 04/05/17 21:20 Dose: 650 mg Docusate Sodium (Colace) 100 mg PO TID [facility] Last Admin: 04/05/17 18:10 Dose: 100 mg Metronidazole (Flagyl) 500 mg in 100 mls @ 100 mls/hr IVPB Q8 ANAIS PRN Reason: Protocol Last Admin: 04/06/17 05:29 Dose: 100 mls/hr Ceftriaxone Sodium (Rocephin 1 Gram Ivpb (D5w)) 1 gm in 100 mls @ 100 mls/hr IVPB DAILY ANAIS PRN Reason: Protocol Last Admin: 04/05/17 10:58 Dose: 100 mls/hr Insulin Human Regular (Humulin R Low) 0 units SC ACHS ANAIS PRN Reason: Protocol Last Admin: 04/05/17 21:57 Dose: Not Given Morphine Sulfate (Morphine) 2 mg IVP Q6H PRN PRN Reason: severe pain Nitroglycerin (Nitro-Bid 2% Oint) 1 ea TOP Q4H PRN PRN Reason: Other Last Admin: 03/31/17 08:42 Dose: 1 ea Ondansetron HCl (Zofran Inj) 4 mg IVP Q6H PRN PRN Reason: Nausea/Vomiting Last Admin: 04/03/17 06:59 Dose: 4 mg Pantoprazole Sodium (Protonix Ec Tab) 40 mg PO ACB ANAIS Simethicone (Mylicon Chew Tab) 80 mg PO PCHS PRN PRN Reason: GI distress Last Admin: 04/05/17 18:10 Dose: 80 mg - Labs Labs: 04/06/17 06:30 04/06/17 06:30 - Constitutional Appears: No Acute Distress - Head Exam Head Exam: ATRAUMATIC, NORMAL INSPECTION, NORMOCEPHALIC - Eye Exam Eye Exam: EOMI, PERRL - ENT Exam ENT Exam: Mucous Membranes Moist - Respiratory Exam Respiratory Exam: Clear to Ausculation Bilateral, NORMAL BREATHING PATTERN - Cardiovascular Exam Cardiovascular Exam: REGULAR RHYTHM, +S1, +S2 - GI/Abdominal Exam GI & Abdominal Exam: Soft, Tenderness (surrounding incision site, ruq), Normal Bowel Sounds Additional comments: RUQ surgical incision with dressing c/d/i. Right abdominal inferior drain in place - Extremities Exam Extremities Exam: absent: Calf Tenderness - Neurological Exam Neurological Exam: Alert, Awake, Oriented x3 - Psychiatric Exam Psychiatric exam: Normal Affect, Normal Mood - Skin Skin Exam: Dry, Intact. absent: Rash Assessment and Plan - Assessment and Plan (Free Text) Assessment: 51yo M with PMHx of GERD presented with abdominal pain and was found to have cholecystitis, need to rule out choledocholithiasis. Patient is s/p lap converted to open subtotal ryan w/ drain x2 Plan: - VSS, No leukocytosis - CT: gallbladder distention w/ gallstones, gallbladder wall thickening & pericholecystic inflammation suggesting acute on chronic cholecystitis; fat containing umbilical hernia; bilateral fat containing inguinal hernias - Abdominal US(04/01/2017): evidence of stones and sludge within gb, 7mm wall gb wall thickening, focal tenderness - IV Antibiotics: Rocephin and Flagyl per medicine team - Zofran PRN - Patient is s/p laproscopic converted to open subtotal cholecystectomy with placement of two drains - POD #4 - Encourage mobility, to chair, diet as tolerated, fluids - simethicone for gas/abd distention - Right inferior drain in place with leg bag - Okay for dc from surgical standpoint - Will discuss plan with Dr. Caal
[2017-04-06] MEDS: Insulin Reg-LOW-Coverage SC SCH ×2 (08:20→13:30)
--- NOTE | 2017-04-06 08:35 | PN ---
DATE: 04/05/2017 SUBJECTIVE: This 51-year-old male was examined at the bedside and the case was reviewed in detail with himself and Cheryl Tay, registered nurse. The patient continues to drain via his Escobar-Aceves and Carrasco catheter drains status post open cholecystectomy for necrotizing [id number] cholecystitis that required open surgical approach. The patient postoperatively has had low-grade temperatures and is being followed by Dr. Gerardo Glass from Infectious Diseases. He remains on IV Rocephin and Flagyl and is draining serosanguineous fluid from both his Escobar-Aceves and Carrasco catheter drains. The patient remains anxious and deconditioned and is currently receiving parenteral Dilaudid for pain. PHYSICAL EXAMINATION: VITAL SIGNS: Temperature of 99, respirations of 18, pulse of 86, and blood pressure of 131/94. Pulse oximetry of 95% on room air. HEENT: Head is normocephalic and atraumatic. Eyes: No icterus. Ears: Clear. Throat: Noninjected. NECK: Supple. CARDIOVASCULAR: Heart is regular, S1 and S2. LUNGS: Clear. ABDOMEN: Soft. EXTREMITIES: No edema. SKIN: Without rash. NEUROLOGICAL: Intact. PSYCHOLOGICAL: Anxious. VASCULAR: Legs are warm to touch. LABORATORY DATA: White count of 8300, hemoglobin of 12.4, hematocrit of 37.2, and platelets of 182,000. Random blood sugar of 116. Sodium of 138, potassium of 4.1, chloride of 103, bicarbonate of 26, BUN of 16, and creatinine of 0.9. Bilirubin of 0.8, AST of 69, ALT of 54, and alkaline phosphatase of 113. Blood, urine and wound cultures no growth to date. IMPRESSION: This is a 51-year-old male who is status post cholecystectomy for acute on chronic cholecystitis with postoperative fevers deconditioning, history of peptic ulcer disease with gastroesophageal reflux disease and drainage from Escobar-Aceves and Carrasco catheter drains, status post gallbladder surgery removal. PLAN: I am awaiting a discussion with Dr. Sukumar Krishnan from Surgery but as discussed with nursing, the patient needs to be made more independent in activities of daily living. He continues on Colace 100 mg p.o. t.i.d. I will discontinue Dilaudid as I discussed with the patient and prescribe Morphine sulfate 2 mg IV q. 6 hours. p.r.n. severe pain and Percocet one p.o. q. 6 hours. p.r.n. mild pain. He continues on Rocephin 1 gram IV q. 24 hours. and Flagyl 500 mg IV q. 8 hours. under the direction of Dr. Gerardo Glass. Now that he is ambulating, his subcutaneous heparin will be discontinued. He is ordered to have Protonix 40 mg p.o. daily. He is instructed on incentive spirometry. He is wearing antiembolism sequential compression device stockings and is receiving physical therapy and will need to be made independent with activities of daily living prior to consideration for discharge. I will need to speak to Dr. Krishnan from Surgery regarding his plans for the management of the drains at home and also his timing for suture removal and surgical followup. As per Dr. Gerardo Glass, he will determine the timing of discontinuation of parenteral antibiotics and if he will need oral antibiotics at home as well. All of the above was discussed in detail with the patient and nursing. Greater than 35 minutes was spent in the care management of this patient. Overall prognosis remains stable. Tiffanie Marrero MD MTDJohanna
[2017-04-06 09:26] VITALS: BP 126/86; PULSE 82; RESP 16; TEMP 99
[2017-04-06] MEDS: cefTRIAXone 1 gm 1 GM/100 ML BAG IVPB SCH (09:40)
[2017-04-06] MEDS ORDERED: Potassium Chloride 20 mEq ER Tab PO ONE (09:45)
--- NOTE | 2017-04-06 21:25 | CP.PCM.PN ---
Subjective - Date & Time of Evaluation Date of Evaluation: 04/06/17 Time of Evaluation: 12:00 - Subjective Subjective: Infectious Disease Follow Up: April 06, 2017 51 yo male with initial presentation of abdominal pain, nausea, and vomiting. The patient found to have cholecystitis on the Abdominal CT. History of previous cholecystitis and believed to be an [id number] cholecystitis. Extensive medical history that includes gallstones, fatty liver, diverticulosis , GERDs. Taken to OR for cholecystectomy with low grade fevers 24 hours after surgery performed. Afebrile so far today. No major complaints. Currently on Rocephin and Flagyl. Patient passing flatus. mild abdominal distension. Objective - Vital Signs/Intake and Output Vital Signs (last 24 hours): Temp Pulse Resp BP Pulse Ox 99 F 82 16 126/86 95 04/06/17 09:25 04/06/17 09:25 04/06/17 09:25 04/06/17 09:25 04/06/17 09:25 Intake and Output: 04/06/17 04/07/17 18:59 06:59 Output Total 10 Balance -10 - Labs Labs: 04/06/17 06:30 04/06/17 06:30 - Constitutional Appears: Non-toxic, No Acute Distress - Head Exam Head Exam: ATRAUMATIC, NORMOCEPHALIC - Eye Exam Eye Exam: EOMI, PERRL Pupil Exam: NORMAL ACCOMODATION, PERRL - ENT Exam ENT Exam: Mucous Membranes Moist, Normal External Ear Exam, TM's Normal Bilaterally - Neck Exam Neck Exam: Full ROM, Normal Inspection - Respiratory Exam Respiratory Exam: Clear to Ausculation Bilateral, NORMAL BREATHING PATTERN. absent: Rales, Rhonchi, Wheezes - Cardiovascular Exam Cardiovascular Exam: REGULAR RHYTHM, RRR, +S1, +S2 - GI/Abdominal Exam GI & Abdominal Exam: Distended, Soft, Normal Bowel Sounds. absent: Tenderness Additional comments: RUQ surgical incision with dressing c/d/i. Luis Miguel drain with serosanguinous fluid , estevez in place, both drains intact. Mild distension. - Extremities Exam Extremities Exam: Full ROM, Normal Inspection - Neurological Exam Neurological Exam: Alert, Awake, CN II-XII Intact, Oriented x3 - Psychiatric Exam Psychiatric exam: Normal Affect, Normal Mood - Skin Skin Exam: Intact, Normal Color Assessment and Plan - Assessment and Plan (Free Text) Assessment: 51 yo male with acute on chronic cholecystitis who had cholecystectomy yesterday. Low grade fevers up to 100.7 F. On Rocephin and Flagyl for antibiotic care. The low grade fever may be post operative which can occur up to 72 hours after the initial surgery. Monitor WBC and fever trend. Can maintain Rocephin for the time being. Butler cultures. Initial cultures done on patient have been negative. Supportive care. Fevers are most likely to resolve on their own as post operative fevers are the most likely scenario. Afebrile so far today. Still no leukocytosis. No new issues. Passing flatus. Still distended abdomen although slightly improved. When ready for discharge, can send home with Keflex 500mg PO TID for 7-10 more days. Patient tolerated Rocephin in hospital. Thank you for allowing me to participate in the care of the patient, we will follow with you.
== END 2017-04-06 14:36 | disposition home or self-care (01) | DRG 416 ==
LOC: ED 02:50 → ERH 05:58 → 5RSO 07:47
PROVIDERS: ADMIT Internal Medicine; ATTEND Internal Medicine
PROC: 0FJ44ZZ Inspection of Gallbladder, Percutaneous Endoscopic Approach (ICD-10-PCS; 2017-04-02)
PROC: 0FT40ZZ Resection of Gallbladder, Open Approach (ICD-10-PCS; principal; 2017-04-02 13:45)
DX: K80.12 Calculus of gallbladder with acute and chronic cholecystitis without obstruction (principal); K76.0 Fatty (change of) liver, not elsewhere classified; K21.9 Gastro-esophageal reflux disease without esophagitis; R50.82 Postprocedural fever; Z53.31 Laparoscopic surgical procedure converted to open procedure; Z87.11 Personal history of peptic ulcer disease